=== PATIENT | male | born 1965 ===

== ENCOUNTER 2021-02-21 07:15 | Outpatient (REF) | payer MEDICARE, SELFPAY ==
[2021-02-21 08:16] LABS: MANUAL DIFF FLAG NO
[2021-02-21 08:19] LABS: Basophils Absolute Auto 0.1 X10*3/uL (0.0-0.2); Basophils Percent Auto 0.6 % (0-2); Eosinophils Absolute Auto 0.3 X10*3/uL (0.0-0.4); Eosinophils Percent Auto 2.9 % (0-4); Hematocrit 42.6 % (42-52); Hemoglobin 13.8 g/dl (14.0-18.0); Imm Gran Abs Auto 0.02 X10*3/uL (0.00-0.03); Imm Gran Pct Auto 0.2 % (0.0-0.4); Lymphocytes Absolute Auto 2.2 X10*3/uL (1.2-4.9); Mean Corpuscular HGB Conc 32.4 g/dl (31.0-36.0); Mean Corpuscular Hemoglobin 29.6 pg (27.0-33.0); Mean Corpuscular Volume 91.2 fL (80-98); Monocytes Absolute Auto 1.2 X10*3/uL (0.1-1.2); Neutrophils Absolute Auto 5.5 X10*3/uL (2.0-8.3); Neutrophils Percent Auto 59.3 % (45-73); Platelet Count 265 X10*3/uL (160-400); Red Blood Count 4.67 X10*6/uL (4.60-5.80); Red Cell Distribution Width 13.4 % (11.0-16.0); White Blood Count 9.3 X10*3/uL (4.8-10.8)
[2021-02-21 08:42] LABS: Glucose Urine UA NEG (NEG); Leukocyte Esterase Urine NEG (NEG); Nitrite Urine NEG (NEG); Specific Gravity - Urine 1.025 (1.005-1.025); Urine Blood TRACE (NEG); Urine Ketones NEG (NEG); Urine Protein NEG (NEG-TRACE)
[2021-02-21 08:48] LABS: Appearance Urine CLEAR; Color Urine YELLOW
[2021-02-21 08:53] LABS: RBC Urine 0-2 /HPF (0); WBC Urine 0 /HPF (0-4)
[2021-02-21 08:54] LABS: Alanine Aminotransferase 18 U/L (0-40); Albumin Level 4.4 g/dL (3.5-5.0); Alkaline Phosphatase 91 U/L (39-117); Anion Gap 15 (12-20); Aspartate Amino Transferase 17 U/L (5-37); Bilirubin Total 0.6 mg/dL (0.0-1.0); Blood Urea Nitrogen 20 mg/dL (9-16); Calcium 9.1 mg/dL (8.4-10.2); Carbon Dioxide 21 mmol/L (22-29); Chloride 107 mmol/L (96-108); Cholesterol 123 mg/dL; Estimated Glomerular Filt Rate > 60; Glucose Fasting 146 mg/dL (60-99); HDL Cholesterol 32 mg/dL; LDL Cholesterol Calculated 72 mg/dl; Potassium 4.3 mmol/L (3.3-5.1); Sodium 139 mmol/L (135-145); Total Protein 7.3 g/dL (6.5-8.0); Triglycerides 97 mg/dL
[2021-02-21 08:57] LABS: TSH reflex Free T4 1.37 uIU/mL (0.32-4.0)
[2021-02-21 09:10] LABS: Microalbum/Creatinine Ratio Ur 9.5 ug/mg cr
== END 2021-02-21 07:16 | disposition home or self-care (01) ==
LOC: HO.LAB 07:15
PROVIDERS: PCP Internal Medicine; Visit Provider Internal Medicine
DX: I10 Essential (primary) hypertension (principal); K21.9 Gastro-esophageal reflux disease without esophagitis; K59.00 Constipation, unspecified; E78.5 Hyperlipidemia, unspecified; E11.9 Type 2 diabetes mellitus without complications; R79.89 Other specified abnormal findings of blood chemistry; E66.9 Obesity, unspecified
CPT/HCPCS: 36415; 80053; 80061; 81001; 82043; 84443; 85025

== ENCOUNTER 2021-05-23 08:09 | Outpatient (REF) | payer MEDICARE, SELFPAY ==
[2021-05-23 09:06] LABS: MANUAL DIFF FLAG NO
[2021-05-23 09:09] LABS: Basophils Percent Auto 0.4 % (0-2); Eosinophils Absolute Auto 0.2 X10*3/uL (0.0-0.4); Eosinophils Percent Auto 1.5 % (0-4); Hematocrit 43.9 % (42-52); Hemoglobin 14.6 g/dl (14.0-18.0); Imm Gran Abs Auto 0.04 X10*3/uL (0.00-0.03); Imm Gran Pct Auto 0.4 % (0.0-0.4); Lymphocytes Absolute Auto 2.5 X10*3/uL (1.2-4.9); Mean Corpuscular HGB Conc 33.3 g/dl (31.0-36.0); Mean Corpuscular Volume 90.3 fL (80-98); Mean Platelet Volume 11.6 fL (9.4-12.4); Monocytes Absolute Auto 0.8 X10*3/uL (0.1-1.2); Monocytes Percent Auto 7.4 % (2-11); Neutrophils Absolute Auto 7.4 X10*3/uL (2.0-8.3); Neutrophils Percent Auto 67.3 % (45-73); Platelet Count 265 X10*3/uL (160-400); Red Blood Count 4.86 X10*6/uL (4.60-5.80); Red Cell Distribution Width 13.1 % (11.0-16.0)
[2021-05-23 09:28] LABS: Glucose Urine UA NEG (NEG); Leukocyte Esterase Urine NEG (NEG); Nitrite Urine NEG (NEG); PH 5.5 (5.0-8.0); Specific Gravity - Urine >= 1.030 (1.005-1.025); UACC Culture Trigger NO; Urine Blood TRACE (NEG); Urine Ketones NEG (NEG); Urine Protein NEG (NEG-TRACE)
[2021-05-23 09:31] LABS: Alanine Aminotransferase 33 U/L (0-40); Albumin Level 4.5 g/dL (3.5-5.0); Alkaline Phosphatase 87 U/L (39-117); Anion Gap 15 (12-20); Aspartate Amino Transferase 25 U/L (5-37); Bilirubin Total 0.9 mg/dL (0.0-1.0); Blood Urea Nitrogen 14 mg/dL (9-16); Calcium 9.6 mg/dL (8.4-10.2); Carbon Dioxide 23 mmol/L (22-29); Chloride 106 mmol/L (96-108); Cholesterol 153 mg/dL; Estimated Glomerular Filt Rate > 60; Glucose Fasting 143 mg/dL (60-99); HDL Cholesterol 30 mg/dL; LDL Cholesterol Calculated 102 mg/dl; Potassium 4.3 mmol/L (3.3-5.1); Sodium 140 mmol/L (135-145); Total Protein 7.3 g/dL (6.5-8.0); Triglycerides 106 mg/dL
[2021-05-23 09:44] LABS: Appearance Urine CLEAR; Color Urine YELLOW
[2021-05-23 09:45] LABS: RBC Urine 0-2 /HPF (0); WBC Urine 0 /HPF (0-4)
[2021-05-23 09:46] LABS: Amorphous Sediment Urine TRACE /LPF; Mucus Urine 1+ /LPF
[2021-05-23 09:50] LABS: Creatinine Urine 192.95 mg/dL; Estimated Average Glucose 157 mg/dL; Hemoglobin A1c % 7.1 %; Microalbum/Creatinine Ratio Ur 13.4 ug/mg cr
[2021-05-23 09:54] LABS: TSH reflex Free T4 1.64 uIU/mL (0.32-4.0)
== END 2021-05-23 08:10 | disposition home or self-care (01) ==
LOC: HO.LAB 08:09
PROVIDERS: PCP Internal Medicine; Visit Provider Internal Medicine
DX: E11.9 Type 2 diabetes mellitus without complications (principal); I10 Essential (primary) hypertension; E78.5 Hyperlipidemia, unspecified; K21.9 Gastro-esophageal reflux disease without esophagitis; R79.89 Other specified abnormal findings of blood chemistry; E78.00 Pure hypercholesterolemia, unspecified; E66.9 Obesity, unspecified
CPT/HCPCS: 36415; 80053; 80061; 81001; 82043; 83036; 84443; 85025

== ENCOUNTER 2021-08-25 06:47 | Outpatient (REF) | payer MEDICARE, SELFPAY ==
[2021-08-25 06:53] LABS: MANUAL DIFF FLAG NO
[2021-08-25 07:29] LABS: Basophils Percent Auto 0.5 % (0-2); Eosinophils Absolute Auto 0.2 X10*3/uL (0.0-0.4); Eosinophils Percent Auto 1.9 % (0-4); Hematocrit 43.6 % (42.0-52.0); Hemoglobin 14.8 g/dl (14.0-18.0); Imm Gran Abs Auto 0.03 X10*3/uL (0.00-0.03); Imm Gran Pct Auto 0.4 % (0.0-0.4); Lymphocytes Absolute Auto 2.1 X10*3/uL (1.2-4.9); Lymphocytes Percent Auto 26.5 % (20-40); Mean Corpuscular HGB Conc 33.9 g/dl (31.0-36.0); Mean Corpuscular Hemoglobin 30.3 pg (27.0-33.0); Mean Corpuscular Volume 89.2 fL (80.0-98.0); Mean Platelet Volume 10.8 fL (9.4-12.4); Monocytes Absolute Auto 0.7 X10*3/uL (0.1-1.2); Monocytes Percent Auto 8.2 % (2-11); Neutrophils Absolute Auto 5.03 x10*3/uL (2.0-8.3); Neutrophils Percent Auto 62.5 % (45-73); Platelet Count 250 X10*3/uL (160-400); Red Blood Count 4.89 X10*6/uL (4.60-5.80); Red Cell Distribution Width 12.6 % (11.0-16.0)
[2021-08-25 07:51] LABS: Estimated Average Glucose 148 mg/dL; Hemoglobin A1c % 6.8 %
[2021-08-25 07:53] LABS: Appearance Urine CLEAR; Color Urine YELLOW; Glucose Urine UA NEG (NEG); Leukocyte Esterase Urine NEG (NEG); Nitrite Urine NEG (NEG); UACC Culture Trigger NO; Urine Blood TRACE (NEG); Urine Ketones NEG (NEG); Urine Protein NEG (NEG-TRACE)
[2021-08-25 08:01] LABS: Alanine Aminotransferase 49 U/L (0-40); Albumin Level 4.5 g/dL (3.5-5.0); Alkaline Phosphatase 104 U/L (39-117); Anion Gap 12 (12-20); Aspartate Amino Transferase 33 U/L (5-37); Bilirubin Total 0.5 mg/dL (0.0-1.0); Blood Urea Nitrogen 12 mg/dL (9-16); Carbon Dioxide 24 mmol/L (22-29); Chloride 105 mmol/L (96-108); Cholesterol 193 mg/dL; Estimated Glomerular Filt Rate > 60; Glucose Fasting 152 mg/dL (60-99); HDL Cholesterol 30 mg/dL; LDL Cholesterol Calculated 105 mg/dl; Potassium 4.1 mmol/L (3.3-5.1); Sodium 137 mmol/L (135-145); Total Protein 7.3 g/dL (6.5-8.0); Triglycerides 293 mg/dL
[2021-08-25 08:02] LABS: Creatinine Urine 167.93 mg/dL
[2021-08-25 08:12] LABS: TSH reflex Free T4 2.59 uIU/mL (0.32-4.0); Vitamin D 25-OH Total 23.8 ng/mL (>30)
[2021-08-25 08:16] LABS: Mucus Urine TRACE /LPF; RBC Urine 0-2 /HPF (0); WBC Urine 0 /HPF (0-4)
== END 2021-08-25 06:48 | disposition home or self-care (01) ==
LOC: HO.LAB 06:47
PROVIDERS: PCP Internal Medicine; Visit Provider Internal Medicine
DX: I10 Essential (primary) hypertension (principal); E78.00 Pure hypercholesterolemia, unspecified; E11.9 Type 2 diabetes mellitus without complications; E55.9 Vitamin D deficiency, unspecified
CPT/HCPCS: 36415; 80053; 80061; 81001; 82043; 82306; 83036; 84443; 85025

== ENCOUNTER 2021-10-21 23:43 | Emergency (ER) | payer MEDICARE, SELFPAY ==
[2021-10-22 00:01] VITALS: BP 223/105; PULSE 75; RESP 20; TEMP 36.9; O2SAT 95; BMI 37.6
[2021-10-22 00:18] VITALS: BP 214/105; PULSE 84; RESP 20; TEMP 36.6; O2SAT 98
[2021-10-22] MEDS: oxyCODONE HCl Immed Release 5 MG TABLET 10 MG PO (01:17)
[2021-10-22] MEDS: Ketorolac Tromethamine 60 MG/2 ML VIAL IM (01:17)
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
[2021-10-22] MEDS: Bacitracin Oint 0.9 GM PACKET 1 APPL TOPICAL (01:42)
[2021-10-22] MEDS: Diphth,Pertus(ACell),Tet Adult 0.5 ML SYRINGE IM (01:44)
== END 2021-10-22 02:11 | disposition home or self-care (01) ==
PROVIDERS: Emergency Provider Emergency Medicine Emergency Medical Services
DX: S60.511A Abrasion of right hand, initial encounter (principal); T23.151A Burn of first degree of right palm, initial encounter; T31.0 Burns involving less than 10% of body surface; X12.XXXA Contact with other hot fluids, initial encounter; Y93.9 Activity, unspecified; Y92.9 Unspecified place or not applicable; Y99.9 Unspecified external cause status; Z79.899 Other long term (current) drug therapy; Z87.891 Personal history of nicotine dependence
CPT/HCPCS: 90471; 90715; 96372; 99284; J1885

== ENCOUNTER 2022-01-19 16:54 | Outpatient (REF) | payer OTHER, SELFPAY ==
[2022-01-19 18:11] LABS: Alanine Aminotransferase 53 U/L (0-40); Albumin Level 4.5 g/dL (3.5-5.0); Alkaline Phosphatase 102 U/L (39-117); Anion Gap 14 (12-20); Aspartate Amino Transferase 31 U/L (5-37); Bilirubin Total 0.5 mg/dL (0.0-1.0); Blood Urea Nitrogen 17 mg/dL (9-16); Calcium 9.9 mg/dL (8.4-10.2); Carbon Dioxide 23 mmol/L (22-29); Chloride 107 mmol/L (96-108); Estimated Glomerular Filt Rate > 60; Glucose Random 167 mg/dL (60-115); Potassium 4.7 mmol/L (3.3-5.1); Sodium 139 mmol/L (135-145); Total Protein 7.8 g/dL (6.5-8.0)
[2022-01-20 06:30] LABS: Estimated Average Glucose 163 mg/dL; Hemoglobin A1C 223.5423 umol/L; Hemoglobin A1c % 7.3 %
== END 2022-01-19 16:55 | disposition home or self-care (01) ==
LOC: HO.LAB 16:54
PROVIDERS: PCP Internal Medicine; Visit Provider Internal Medicine
DX: E11.9 Type 2 diabetes mellitus without complications (principal)
CPT/HCPCS: 36415; 80053; 83036

== ENCOUNTER 2022-08-17 08:22 | Outpatient (REF) | payer OTHER, SELFPAY ==
[2022-08-17 08:33] LABS: MANUAL DIFF FLAG NO
[2022-08-17 08:41] LABS: Basophils Percent Auto 0.4 % (0-2); Eosinophils Absolute Auto 0.2 X10*3/uL (0.0-0.4); Eosinophils Percent Auto 1.6 % (0-4); Hemoglobin 14.3 g/dl (14.0-18.0); Imm Gran Abs Auto 0.05 X10*3/uL (0.00-0.03); Imm Gran Pct Auto 0.5 % (0.0-0.4); Lymphocytes Absolute Auto 2.6 X10*3/uL (1.2-4.9); Lymphocytes Percent Auto 28.4 % (20-40); Mean Corpuscular HGB Conc 33.3 g/dl (31.0-36.0); Mean Corpuscular Hemoglobin 30.1 pg (27.0-33.0); Mean Corpuscular Volume 90.5 fL (80.0-98.0); Mean Platelet Volume 10.6 fL (9.4-12.4); Monocytes Absolute Auto 0.9 X10*3/uL (0.1-1.2); Monocytes Percent Auto 9.1 % (2-11); Neutrophils Absolute Auto 5.6 x10*3/uL (2.0-8.3); Platelet Count 248 X10*3/uL (160-400); Red Blood Count 4.75 X10*6/uL (4.60-5.80); Red Cell Distribution Width 12.8 % (11.0-16.0); White Blood Count 9.3 X10*3/uL (4.8-10.8)
[2022-08-17 08:51] LABS: Estimated Average Glucose 151 mg/dL; Hemoglobin A1c % 6.9 %
[2022-08-17 09:05] LABS: Alanine Aminotransferase 58 U/L (0-40); Albumin Level 4.4 g/dL (3.5-5.0); Alkaline Phosphatase 103 U/L (39-117); Anion Gap 17 (12-20); Aspartate Amino Transferase 33 U/L (5-37); Bilirubin Total 0.6 mg/dL (0.0-1.0); Blood Urea Nitrogen 13 mg/dL (9-16); Calcium 9.4 mg/dL (8.4-10.2); Carbon Dioxide 24 mmol/L (22-29); Chloride 104 mmol/L (96-108); Cholesterol 187 mg/dL; Estimated Glomerular Filt Rate > 60; Glucose Fasting 153 mg/dL (60-99); HDL Cholesterol 39 mg/dL; LDL Cholesterol Calculated 125 mg/dl; Potassium 3.9 mmol/L (3.3-5.1); Sodium 141 mmol/L (135-145); Total Protein 7.6 g/dL (6.5-8.0); Triglycerides 119 mg/dL
[2022-08-17 09:27] LABS: TSH reflex Free T4 1.86 uIU/mL (0.32-4.0); Vitamin D 25-OH Total 24.7 ng/mL (>30)
[2022-08-17 09:29] LABS: Appearance Urine Clear; Color Urine Yellow; Glucose Urine UA Negative (Negative); PH 6.5 (5.0-9.0); Specific Gravity - Urine 1.025 (1.005-1.025); Urine Blood Negative (Negative); Urine Protein Trace mg/dL (Neg-Trace)
[2022-08-17 09:30] LABS: Leukocyte Esterase Urine Negative (Negative); Nitrite Urine Negative (Negative); Urine Ketones Negative (Negative)
[2022-08-17 09:57] LABS: Creatinine Urine 190.34 mg/dL; Microalbum/Creatinine Ratio Ur 29.9 ug/mg cr
== END 2022-08-17 08:23 | disposition home or self-care (01) ==
LOC: HO.LAB 08:22
PROVIDERS: PCP Internal Medicine; Visit Provider Internal Medicine
DX: E78.00 Pure hypercholesterolemia, unspecified (principal); E11.9 Type 2 diabetes mellitus without complications; E55.9 Vitamin D deficiency, unspecified; I10 Essential (primary) hypertension
CPT/HCPCS: 36415; 80053; 80061; 81003; 82043; 82306; 83036; 84443; 85025

== ENCOUNTER 2022-11-19 07:55 | Outpatient (REF) | payer OTHER, SELFPAY ==
[2022-11-19 08:09] LABS: MANUAL DIFF FLAG NO
[2022-11-19 09:00] LABS: Appearance Urine Clear; Color Urine Yellow; Glucose Urine UA Negative (Negative); Leukocyte Esterase Urine Negative (Negative); Nitrite Urine Negative (Negative); Urine Blood Negative (Negative); Urine Ketones Negative (Negative); Urine Protein Negative (Neg-Trace)
[2022-11-19 09:02] LABS: Basophils Absolute Auto 0.1 X10*3/uL (0.0-0.2); Basophils Percent Auto 0.6 % (0-2); Eosinophils Absolute Auto 0.2 X10*3/uL (0.0-0.4); Eosinophils Percent Auto 1.7 % (0-4); Hematocrit 43.2 % (42.0-52.0); Hemoglobin 14.6 g/dl (14.0-18.0); Imm Gran Abs Auto 0.05 X10*3/uL (0.00-0.03); Imm Gran Pct Auto 0.5 % (0.0-0.4); Lymphocytes Absolute Auto 2.1 X10*3/uL (1.2-4.9); Lymphocytes Percent Auto 20.9 % (20-40); Mean Corpuscular HGB Conc 33.8 g/dl (31.0-36.0); Mean Corpuscular Hemoglobin 29.8 pg (27.0-33.0); Mean Corpuscular Volume 88.2 fL (80.0-98.0); Mean Platelet Volume 11.7 fL (9.4-12.4); Monocytes Absolute Auto 0.8 X10*3/uL (0.1-1.2); Monocytes Percent Auto 7.8 % (2-11); Neutrophils Percent Auto 68.5 % (45-73); Platelet Count 231 X10*3/uL (160-400); Red Cell Distribution Width 12.5 % (11.0-16.0); White Blood Count 10.2 X10*3/uL (4.8-10.8)
[2022-11-19 09:13] LABS: Estimated Average Glucose 157 mg/dL; Hemoglobin A1c % 7.1 %
[2022-11-19 09:50] LABS: Creatinine Urine 133.51 mg/dL; Microalbum/Creatinine Ratio Ur 13.4 ug/mg cr
[2022-11-19 09:56] LABS: Alanine Aminotransferase 30 U/L (0-40); Albumin Level 4.4 g/dL (3.5-5.0); Alkaline Phosphatase 101 U/L (39-117); Anion Gap 16 (12-20); Aspartate Amino Transferase 23 U/L (5-37); Bilirubin Total 1.7 mg/dL (0.0-1.0); Blood Urea Nitrogen 15 mg/dL (9-16); Calcium 9.2 mg/dL (8.4-10.2); Carbon Dioxide 22 mmol/L (22-29); Chloride 104 mmol/L (96-108); Cholesterol 198 mg/dL; Estimated Glomerular Filt Rate > 60; Glucose Fasting 128 mg/dL (60-99); HDL Cholesterol 30 mg/dL; LDL Cholesterol Calculated 141 mg/dl; Sodium 138 mmol/L (135-145); Total Protein 7.5 g/dL (6.5-8.0); Triglycerides 135 mg/dL
== END 2022-11-19 07:56 | disposition home or self-care (01) ==
LOC: HO.LAB 07:55
PROVIDERS: PCP Internal Medicine; Visit Provider Internal Medicine
DX: E11.9 Type 2 diabetes mellitus without complications (principal); E78.00 Pure hypercholesterolemia, unspecified; R30.0 Dysuria; I10 Essential (primary) hypertension
CPT/HCPCS: 36415; 80053; 80061; 81003; 82043; 83036; 85025

== ENCOUNTER 2022-11-25 08:49 | Outpatient (REF) | payer OTHER, SELFPAY ==
--- NOTE | ~2022-11-25 | XR_ITS ---
EXAMINATION: XR LUMBOSACRAL SPINE CLINICAL INFORMATION: Low back pain COMPARISON: None TECHNIQUE: Three views of the lumbosacral spine. FINDINGS: Question mild anterolisthesis of L5 on S1, evaluation limited by overlapping densities. The sagittal alignment is otherwise maintained. Vertebral body heights are maintained. No evidence of acute fracture. Disc spaces are maintained. Multilevel mild endplate spurring. Multilevel facet degeneration. There appears be mild bilateral SI joint arthritis. Surgical clips in right upper abdomen. No abnormal soft tissue calcification seen. XR/XR lumbar spine 2-3V IMPRESSION: Mild lumbar spondylosis. No evidence of acute fracture. Mild bilateral SI joint arthritis.
--- NOTE | ~2022-11-25 | XR_ITS ---
EXAMINATION: XR KNEE, RIGHT CLINICAL INFORMATION: Knee pain. COMPARISON: None TECHNIQUE: Four views of the right knee. FINDINGS: No visible acute fracture or dislocation. Small suprapatellar joint fluid.. Alignment is anatomic. Joint spaces are well maintained. No abnormal soft tissue calcification. Superior patellar insertion enthesopathy. XR/XR knee RT 4V IMPRESSION: No evidence of acute osseous abnormality.
== END 2022-11-25 08:50 | disposition home or self-care (01) ==
LOC: HO.XRAY 08:49
PROVIDERS: PCP Internal Medicine; Visit Provider Internal Medicine
DX: M54.50 Low back pain, unspecified (principal); M25.561 Pain in right knee
CPT/HCPCS: 72100; 73564

== ENCOUNTER 2023-02-09 06:47 | Outpatient (REF) | payer OTHER, SELFPAY ==
[2023-02-09 06:59] LABS: MANUAL DIFF FLAG NO
[2023-02-09 07:11] LABS: Basophils Absolute Auto 0.1 X10*3/uL (0.0-0.2); Basophils Percent Auto 0.6 % (0-2); Eosinophils Absolute Auto 0.2 X10*3/uL (0.0-0.4); Eosinophils Percent Auto 1.7 % (0-4); Hematocrit 45.9 % (42.0-52.0); Hemoglobin 15.2 g/dl (14.0-18.0); Imm Gran Abs Auto 0.05 X10*3/uL (0.00-0.03); Imm Gran Pct Auto 0.5 % (0.0-0.4); Lymphocytes Absolute Auto 2.3 X10*3/uL (1.2-4.9); Lymphocytes Percent Auto 22.9 % (20-40); Mean Corpuscular HGB Conc 33.1 g/dl (31.0-36.0); Mean Corpuscular Hemoglobin 29.6 pg (27.0-33.0); Mean Corpuscular Volume 89.5 fL (80.0-98.0); Monocytes Absolute Auto 0.6 X10*3/uL (0.1-1.2); Monocytes Percent Auto 6.3 % (2-11); Neutrophils Absolute Auto 6.7 x10*3/uL (2.0-8.3); Platelet Count 245 X10*3/uL (160-400); Red Blood Count 5.13 X10*6/uL (4.60-5.80); Red Cell Distribution Width 12.7 % (11.0-16.0); White Blood Count 9.9 X10*3/uL (4.8-10.8)
[2023-02-09 07:25] LABS: Estimated Average Glucose 154 mg/dL
[2023-02-09 07:57] LABS: Alanine Aminotransferase 29 U/L (0-40); Albumin Level 4.6 g/dL (3.5-5.0); Alkaline Phosphatase 95 U/L (39-117); Anion Gap 12 (12-20); Aspartate Amino Transferase 21 U/L (5-37); Bilirubin Total 1.5 mg/dL (0.0-1.0); Blood Urea Nitrogen 14 mg/dL (9-16); Calcium 9.6 mg/dL (8.4-10.2); Carbon Dioxide 24 mmol/L (22-29); Chloride 105 mmol/L (96-108); Cholesterol 208 mg/dL; Estimated Glomerular Filt Rate > 60; Glucose Fasting 161 mg/dL (60-99); HDL Cholesterol 34 mg/dL; LDL Cholesterol Calculated 148 mg/dl; Potassium 4.3 mmol/L (3.3-5.1); Sodium 137 mmol/L (135-145); Total Protein 7.4 g/dL (6.5-8.0); Triglycerides 131 mg/dL
[2023-02-09 08:13] LABS: Vitamin D 25-OH Total 31.9 ng/mL (>30)
[2023-02-09 08:55] LABS: Appearance Urine Clear; Color Urine Yellow; Glucose Urine UA Negative (Negative); Leukocyte Esterase Urine Trace (Negative); Nitrite Urine Negative (Negative); PH 5.5 (5.0-9.0); UMIC TRIGGER UACC YES; Urine Blood Negative (Negative); Urine Ketones Negative (Negative); Urine Protein Negative (Neg-Trace)
[2023-02-09 08:58] LABS: Bacteria Urine None Seen (None Seen); Hyaline Casts Urine 0-2 /LPF (0-2); RBC Urine 0-2 /HPF (0-2); Squamous Epithelial Cell Urine 0-2 /HPF (0-2); WBC Urine 0-5 /HPF (0-5)
[2023-02-09 09:21] LABS: Creatinine Urine 182.92 mg/dL; Microalbum/Creatinine Ratio Ur 20.2 ug/mg cr
== END 2023-02-09 06:48 | disposition home or self-care (01) ==
LOC: HO.LAB 06:47
PROVIDERS: PCP Internal Medicine; Visit Provider Internal Medicine
DX: E11.9 Type 2 diabetes mellitus without complications (principal); E78.00 Pure hypercholesterolemia, unspecified; E55.9 Vitamin D deficiency, unspecified; I10 Essential (primary) hypertension
CPT/HCPCS: 36415; 80053; 80061; 81001; 82043; 82306; 83036; 84443; 85025

== ENCOUNTER 2023-05-24 08:16 | Outpatient (REF) | payer OTHER, SELFPAY ==
[2023-05-24 08:55] LABS: MANUAL DIFF FLAG NO
[2023-05-24 09:01] LABS: Basophils Absolute Auto 0.1 X10*3/uL (0.0-0.2); Basophils Percent Auto 0.6 % (0-2); Eosinophils Absolute Auto 0.2 X10*3/uL (0.0-0.4); Eosinophils Percent Auto 1.7 % (0-4); Hemoglobin 14.9 g/dl (14.0-18.0); Imm Gran Abs Auto 0.03 X10*3/uL (0.00-0.03); Imm Gran Pct Auto 0.3 % (0.0-0.4); Lymphocytes Absolute Auto 2.1 X10*3/uL (1.2-4.9); Lymphocytes Percent Auto 22.2 % (20-40); Mean Corpuscular HGB Conc 33.1 g/dl (31.0-36.0); Mean Corpuscular Hemoglobin 30.3 pg (27.0-33.0); Mean Corpuscular Volume 91.5 fL (80.0-98.0); Mean Platelet Volume 10.8 fL (9.4-12.4); Monocytes Absolute Auto 0.9 X10*3/uL (0.1-1.2); Monocytes Percent Auto 8.9 % (2-11); Neutrophils Absolute Auto 6.3 x10*3/uL (2.0-8.3); Neutrophils Percent Auto 66.3 % (45-73); Platelet Count 239 X10*3/uL (160-400); Red Blood Count 4.92 X10*6/uL (4.60-5.80); Red Cell Distribution Width 13.1 % (11.0-16.0); White Blood Count 9.5 X10*3/uL (4.8-10.8)
[2023-05-24 09:16] LABS: Estimated Average Glucose 143 mg/dL; Hemoglobin A1c % 6.6 %
[2023-05-24 09:49] LABS: Alanine Aminotransferase 56 U/L (0-40); Albumin Level 4.3 g/dL (3.5-5.0); Alkaline Phosphatase 104 U/L (39-117); Anion Gap 17 (12-20); Aspartate Amino Transferase 38 U/L (5-37); Bilirubin Total 1.2 mg/dL (0.0-1.0); Blood Urea Nitrogen 17 mg/dL (9-16); Calcium 9.8 mg/dL (8.4-10.2); Carbon Dioxide 23 mmol/L (22-29); Chloride 103 mmol/L (96-108); Cholesterol 238 mg/dL; Estimated Glomerular Filt Rate > 60; Glucose Fasting 154 mg/dL (60-99); HDL Cholesterol 35 mg/dL; LDL Cholesterol Calculated 151 mg/dl; Sodium 139 mmol/L (135-145); Total Protein 7.8 g/dL (6.5-8.0); Triglycerides 260 mg/dL
[2023-05-24 11:10] LABS: Appearance Urine Cloudy; Color Urine Yellow; Glucose Urine UA Negative (Negative); Leukocyte Esterase Urine Negative (Negative); Nitrite Urine Negative (Negative); Specific Gravity - Urine 1.025 (1.005-1.025); Urine Blood Negative (Negative); Urine Ketones Negative (Negative); Urine Protein Negative (Neg-Trace)
[2023-05-24 11:55] LABS: Creatinine Urine 208.33 mg/dL; Microalbum/Creatinine Ratio Ur 18.2 ug/mg cr
== END 2023-05-24 08:17 | disposition home or self-care (01) ==
LOC: HO.LAB 08:16
PROVIDERS: PCP Internal Medicine; Visit Provider Internal Medicine
DX: E11.9 Type 2 diabetes mellitus without complications (principal); E55.9 Vitamin D deficiency, unspecified; E78.00 Pure hypercholesterolemia, unspecified; I10 Essential (primary) hypertension; R30.0 Dysuria
CPT/HCPCS: 36415; 80053; 80061; 81003; 82043; 82306; 83036; 85025

== ENCOUNTER 2023-05-24 15:00 | Outpatient (AMB) | payer OTHER, SELFPAY ==
--- NOTE | 2023-05-24 15:02 | A.OFFPC_ITS ---
Vital Signs 05/24/23 15:03 Height 5 ft 11 in Weight 268 lb BMI 37.4 BP 138/90 H Blood Pressure Location Rt brachial Position Sitting Pulse 70 Pulse Source Pulse Oximeter Pulse Oximetry (%) 96 Oxygen Delivery Method Room Air Intake Visit Reasons: DM, hyperlipidemia, HTN Picker And Packer Required: No Accompanied by: Self / Same As Patient Allergies duloxetine [Cymbalta] Allergy (Unknown, Verified 05/24/23 17:44) nausea , vomiting gabapentin Allergy (Unknown, Verified 05/24/23 17:44) dizziness, nausea shellfish derived Allergy (Unknown, Verified 05/24/23 17:44) Unknown Medication List - Last Reconciled 05/24/23 by Yash Zambrano MD atenolol 25 mg PO DAILY blood sugar diagnostic (Glisten Ultra Test strips) DIRECTED TO TEST BLOOD SUGAR DAILY clonazepam 1 mg PO BEDTIME PRN 30 days lancets (Glisten Delica Plus Lancet) 30 gauge miscellaneous DAILY metformin ER 500 mg PO DAILY nortriptyline 25 mg PO BEDTIME 30 days omeprazole 20 mg PO BID 90 days rosuvastatin 5 mg PO DAILY 90 days Tobacco use date assessed: 05/24/23 Dental Screening Dental Screen Date: 05/24/23 Did you have a dental visit in the last 12 months?: No Did you have a dental problem in the last 6 months where you did not have access to dental care?: No Was dental information given to patient?: Patient has dentist HPI DM, hyperlipidemia, HTN HPI Details Patient comes in today for his follow up visit States that he feels okay He denies any headaches or dizziness Denies any chest pains, no SOB No nausea/vomiting, no abdominal pain No change in bowel habits noted Had his follow up labs done earlier this morning - to discuss his results Also needs a physical exam form filled out for the caregiver program; states that 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 Mother Depression Myocardial infarction Brother In good health Brother In good health Daughter In good health Daughter In good health Daughter In good health Social History Housing: House Alcohol intake: current Alcohol intake frequency: holidays/special occasions only Patient Tobacco Use Status: Former Tobacco user Quit Date: 20 years ago e-Cigarette/Vaping Use: Never Used Second Hand Smoke Exposure: Yes service: No Current occupational status: disabled Cognitive needs: No Hearing needs: No Vision needs: No Questionnaire PHQ-9 Over the last 2 weeks, how often have you been bothered by any of the following problems? 1. Little interest or pleasure in doing things: not at all 2. Feeling down, depressed, or hopeless: not at all 3. Trouble falling or staying asleep, or sleeping too much: not at all 4. Feeling tired or having little energy: not at all 5. Poor appetite or overeating: not at all 6. Feeling bad about yourself - or that you are a failure or have let yourself or your family down: not at all 7. Trouble concentrating on things, such as reading the newspaper or watching television: not at all 8. Moving or speaking so slowly that other people could have noticed. Or the opposite - being so fidgety or restless that you have been moving around a lot more than usual: not at all 9. Thoughts that you would be better off or of hurting yourself in some way: not at all Total score: 0 Depression Screening Interpretation: Negative 30169 - PHQ-9 Billing: Yes Source: Developed by Drs. Reji Ureña, Antionette Dickey, Ronald Ignacio and colleagues, with an educational shelby from [employer]. Thrive Questionnaire Date Thrive assessed: 05/24/23 I am a: Patient What is your living situation today?: I have a steady place to live Within the past 12 months, did the food you bought not last and you didn't have the money to get more?: Never true Within the past 12 months, did you worry whether your food would run out before you got money to buy more?: Never true Do you have trouble paying for medicines?: No Do you have trouble getting transportation to medical appointments?: No Do you have trouble paying your heating and electricity bill?: No Do you have trouble taking care of your child, family member or friend?: No Do you have trouble with day-to-day activities such as bathing, preparing meals, shopping, managing finances, etc.?: No Are you currently unemployed and looking for a job?: No Are you interested in more education?: No Please select the resources that you would like help with: None Currently or been in a relationship where the following occur: no concerns reported AUDIT C Alcohol Use Questionnaire (AUDIT-C) 1. How often do you have a drink containing alcohol?: Monthly or less 2. How many drinks containing alcohol do you have on a typical day when you are drinking?: 1 or 2 3. How often do you have six or more drinks on one occasion?: Never Total Score: 1 Score Reviewed/Action Taken: Yes SIRENA-7 AMB Questionnaire SIRENA-7 Date SIRENA - 7 assessed: 05/24/23 Feeling nervous, anxious, or on edge: 0 = Not at all Not being able to stop or control worryin = Not at all Worrying too much about different things: 0 = Not at all Trouble relaxin = Not at all Being so restless that it is hard to sit still: 0 = Not at all Becoming easily annoyed or irritable: 0 = Not at all Feeling afraid as if something awful might happen: 0 = Not at all Total SIRENA-7 score (0-4 normal; 5-9 mild; 10-14 moderate; 15-21 severe): 0 Source: Developed by Drs. Reji Ureña, Antionette Dickey, Ronald Ignacio and colleagues, with an educational shelby from [employer]. Review of Systems Const Denies fatigue, Denies fever(s) and Denies headache(s) ENT Denies dysphagia, Denies dizziness, Denies headache(s) and Denies sore throat Card Denies chest pain, Denies palpitations and Denies dyspnea Resp Denies cough, Denies dyspnea and Denies wheezing GI Denies abdominal pain, Denies constipation, Denies dysphagia, Denies heartburn, Denies diarrhea, Denies nausea and Denies vomiting Denies dysuria, Denies nocturia and Denies urinary frequency Musc Reports back pain (on and off) Neuro Denies dizziness and Denies headache(s) Endo Denies fatigue and Denies palpitations Aller/Immun Denies wheezing Physical exam (Primary Care) Vital Signs: Last Vital Signs Pulse 70 05/24/23 15:03 BP 138/90 H 05/24/23 15:03 Pulse Ox 96 05/24/23 15:03 Oxygen Delivery Method Room Air 05/24/23 15:03 BMI result Body Mass Index 37.4 Tobacco/Smoking Status: Tobacco use Status Tobacco use date assessed 05/24/23 05/24/23 15:12 Patient Tobacco Use Status Former Tobacco user 05/24/23 15:12 e-Cigarette/Vaping Use Never Used 05/24/23 15:12 PHQ-9: PHQ-9 Score PHQ-9: Total score 0 05/24/23 15:49 Depression Screening Interpretation: Negative Thrive Assessment: Date of Thrive Assessment Date Thrive assessed 05/24/23 05/24/23 15:12 Currently or been in a relationship where the following occur: no concerns reported Const General: no acute distress and alert HENMT Ears: TM's normal bilaterally and EAC's normal Throat: Yes posterior oropharynx normal and Yes tonsils normal (no TP congestion) Neck Neck: Yes no lymphadenopathy and Yes supple Resp Auscultation: clear to auscultation bilaterally, no rales and no wheezes Cardio Rate: regular rate Rhythm: regular rhythm Heart sounds: no murmurs GI Palpation (GI): Soft to palpation and nontender Auscultation: normal bowel sounds Back/Spine/Pelvis Thoracic/Lumbar Spine: lumbar spinal tenderness Skin Rashes: no rashes Extrem General: Yes no clubbing, cyanosis or edema Right lower extremity: knee Details: tenderness (mild) Office Meds tuberculin PPD Performing Provider: Yash Zambrano MD Administered by: Laina Corea RN on 05/24/23 15:49 Dose Route Admin Location Lot Number Expiration Date 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 0.1 mL intradermal left forearm [id number] 03/31/25 58711-315-03 [employer] Results AMB Hemoglobin A1c AMB Hemoglobin A1c 6.5 % Last Edit by Socorro Hassan on 05/24/23 15:35 Results Reviewed Results Reviewed: Laboratory Last Values Hgb A1c (Clinic) 6.5 % (4.0-6.0) H 05/24/23 15:33 05/24/23 05/24/23 05/24/23 08:52 08:52 08:52 WBC 9.5 Hgb 14.9 Hct 45.0 Plt Count 239 Sodium 139 Potassium 4.0 Creatinine 0.86 Estimated GFR > 60 Fasting Glucose 154 H Hemoglobin A1c % 6.6 Calcium 9.8 AST 38 H ALT 56 H Triglycerides 260 Cholesterol 238 LDL Cholesterol, Calc 151 HDL Cholesterol 35 25-OH Vitamin D Total 38.0 Ur Specific [place] Urine Protein Urine Glucose (UA) Urine Blood Microalb/Creat Ratio 05/24/23 05/24/23 09:00 09:00 WBC Hgb Hct Plt Count Sodium Potassium Creatinine Estimated GFR Fasting Glucose Hemoglobin A1c % Calcium AST ALT Triglycerides Cholesterol LDL Cholesterol, Calc HDL Cholesterol 25-OH Vitamin D Total Ur Specific [place] 1.025 Urine Protein Negative Urine Glucose (UA) Negative Urine Blood Negative Microalb/Creat Ratio 18.2 Assessment and Plan Assessment & Plan (1) Dyslipidemia: Code(s): E78.5 - Hyperlipidemia, unspecified Plan: Results of his labs done earlier today reviewed and discussed with patient Reinforced low cholesterol diet Continue Rosuvastatin 5 mg QD Will recheck labs in 3 months for follow up (2) Diabetes mellitus: Code(s): E11.9 - Type 2 diabetes mellitus without complications Qualifiers: Diabetes mellitus complication status: without complication Diabetes mellitus chcf insulin use: without residential property consultant use Diabetes mellitus type: type 2 Qualified Code(s): E11.9 - Type 2 diabetes mellitus without complications Plan: HgbA1c is at 6.6% on his labs done earlier today (was at 7.0 % a few months ago) - goal is at least <7.0% Reinforced diabetic diet Continue Jardiance 25 mg Q AM; is also on Metformin ER 500 mg QD but patient admits that he has not been taking this for a few weeks now as he often gets an upset stomach whenever he takes his Metformin As his HgbA1c appears to have actually improved from his last visit even though he stopped taking his Metformin ER a few weeks ago, will have him continue to HOLD his Metformin ER for now and stay only on Jardiance for his DM (3) Benign essential hypertension: Code(s): I10 - Essential (primary) hypertension Plan: Reinforced low sodium diet - goal is systolic BP of 120 mm or less Continue Atenolol 25 mg QD (4) GERD without esophagitis: Code(s): K21.9 - Gastro-esophageal reflux disease without esophagitis Plan: Dietary restrictions reinforced Continue Omeprazole 20 mg QD (5) Neuropathy: Code(s): G62.9 - Polyneuropathy, unspecified Plan: His previous legs symptoms appear to have improved somewhat with Nortriptyline Continue Nortriptyline 25 mg Q HS If symptoms persist or progress despite Rx, will consider sending him for EMG & NCV for further evaluation (6) Right knee pain: Code(s): M25.561 - Pain in right knee Qualifiers: Chronicity: unspecified Qualified Code(s): M25.561 - Pain in right knee Plan: Right knee x-rays done a few months ago revealed (+) superior patellar insertion enthesopathy Patient states that his right knee pain has been quite manageable lately (7) Low back pain: Code(s): M54.50 - Low back pain, unspecified Qualifiers: Back pain laterality: right Chronicity: unspecified Sciatica presence: unspecified whether sciatica present Qualified Code(s): M54.50 - Low back pain, unspecified Plan: Reinforced activity and weight-lifting restrictions X-rays of the lumbar spine done in November 2022 revealed (+) mild lumbar spondylosis with mild bilateral SI joint arthritis Will consider referring to physical therapy if his back pain flares up (8) Constipation: Code(s): K59.00 - Constipation, unspecified Qualifiers: Constipation type: unspecified constipation type Qualified Code(s): K59.00 - Constipation, unspecified Plan: Improved - encouraged to continue with increased oral fluids and dietary fiber Continue Amitiza 8 mcg BID and Miralax 17 gm QD (9) Elevated LFTs: Code(s): R79.89 - Other specified abnormal findings of blood chemistry Plan: Improved previously but his LFTs have gone up again on his recent labs - is most likely related to his weight Will continue to monitor his LFTs regularly (10) Obstructive sleep apnea: Code(s): G47.33 - Obstructive sleep apnea (adult) (pediatric) Plan: Continue using his CPAP device when sleeping at night Follow up with Sleep Medicine as scheduled (11) Anxiety: Code(s): F41.9 - Anxiety disorder, unspecified Plan: Continue Clonazepam 1 mg Q HS PRN (12) Obesity (BMI 30-39.9): Code(s): E66.9 - Obesity, unspecified Plan: Reinforced diet/exercise as tolerated/lose weight Plan Per request, PPD placed; patient is reminded to return in 48 to 72 hours for his PPD reading Follow up in 3 months Orders: Orders Comprehensive [place]. Panel Fast 3 Months E78.00 - Pure hypercholesterolemia, unspecified Hemoglobin A1c 3 Months E11.9 - Type 2 diabetes mellitus without complications Lipid Panel 3 Months E78.00 - Pure hypercholesterolemia, unspecified TSH reflex Free T4 3 Months E78.00 - Pure hypercholesterolemia, unspecified Vitamin D 25-OH Total 3 Months E55.9 - Vitamin D deficiency, unspecified Microalbumin, Random (w Creat) 3 Months E11.9 - Type 2 diabetes mellitus without complications Complete Blood Count Auto Diff 3 Months I10 - Essential (primary) hypertension UA CC w/rflx Micro + Cult 3 Months R30.0 - Dysuria AMB PPD Planted Today Z11.1 - Encounter for screening for respiratory tuberculosis AMB Hemoglobin A1c Today E11.9 - Type 2 diabetes mellitus without complications Coding Level of Care Code Est Pt Level 4 (36289) Diagnoses Dyslipidemia E78.5 Diabetes mellitus E11.9 Diabetes mellitus complication status: without complication Diabetes mellitus residential property consultant insulin use: without residential property consultant use Diabetes mellitus type: type 2 Benign essential hypertension I10 GERD without esophagitis K21.9 Neuropathy G62.9 Right knee pain M25.561 Chronicity: unspecified Low back pain M54.50 Back pain laterality: right Chronicity: unspecified Sciatica presence: unspecified whether sciatica present Constipation K59.00 Constipation type: unspecified constipation type Elevated LFTs R79.89 Obstructive sleep apnea G47.33 Anxiety F41.9 Obesity (BMI 30-39.9) E66.9
[2023-05-24 15:03] VITALS: BP 138/90; PULSE 70; O2SAT 96; BMI 37.4
== END 2023-05-24 16:03 | disposition home or self-care (01) ==
PROVIDERS: PCP Internal Medicine; Visit Provider Internal Medicine
DX: E11.620 Type 2 diabetes mellitus with diabetic dermatitis (principal); I10 Essential (primary) hypertension; K21.9 Gastro-esophageal reflux disease without esophagitis; F41.9 Anxiety disorder, unspecified; E78.5 Hyperlipidemia, unspecified; G62.9 Polyneuropathy, unspecified; M25.561 Pain in right knee; M54.50 Low back pain, unspecified; K59.00 Constipation, unspecified; R79.89 Other specified abnormal findings of blood chemistry; G47.33 Obstructive sleep apnea (adult) (pediatric); E66.9 Obesity, unspecified
CPT/HCPCS: 83036; 86580; 99214

== ENCOUNTER 2023-09-06 06:02 | Outpatient (REF) | payer OTHER, SELFPAY ==
[2023-09-06 06:13] LABS: MANUAL DIFF FLAG NO
[2023-09-06 07:07] LABS: Basophils Absolute Auto 0.1 X10*3/uL (0.0-0.2); Basophils Percent Auto 0.9 % (0-2); Eosinophils Absolute Auto 0.2 X10*3/uL (0.0-0.4); Hematocrit 42.3 % (42.0-52.0); Hemoglobin 14.1 g/dl (14.0-18.0); Imm Gran Abs Auto 0.02 X10*3/uL (0.00-0.03); Imm Gran Pct Auto 0.3 % (0.0-0.4); Lymphocytes Absolute Auto 2.6 X10*3/uL (1.2-4.9); Lymphocytes Percent Auto 33.6 % (20-40); Mean Corpuscular HGB Conc 33.3 g/dl (31.0-36.0); Mean Corpuscular Hemoglobin 30.6 pg (27.0-33.0); Mean Corpuscular Volume 91.8 fL (80.0-98.0); Monocytes Absolute Auto 0.9 X10*3/uL (0.1-1.2); Monocytes Percent Auto 11.1 % (2-11); Neutrophils Percent Auto 52.1 % (45-73); Platelet Count 298 X10*3/uL (160-400); Red Blood Count 4.61 X10*6/uL (4.60-5.80); Red Cell Distribution Width 12.7 % (11.0-16.0); White Blood Count 7.7 X10*3/uL (4.8-10.8)
[2023-09-06 07:14] LABS: Estimated Average Glucose 134 mg/dL; Hemoglobin A1c % 6.3 % (<6.0)
[2023-09-06 07:32] LABS: Alanine Aminotransferase 33 U/L (0-40); Albumin Level 4.3 g/dL (3.5-5.0); Alkaline Phosphatase 122 U/L (39-117); Anion Gap 13 (12-20); Aspartate Amino Transferase 23 U/L (5-37); Bilirubin Total 0.6 mg/dL (0.0-1.0); Blood Urea Nitrogen 10 mg/dL (9-16); Calcium 9.1 mg/dL (8.4-10.2); Carbon Dioxide 26 mmol/L (22-29); Chloride 104 mmol/L (96-108); Cholesterol 191 mg/dL (<200); Estimated Glomerular Filt Rate > 60; Glucose Fasting 128 mg/dL (60-99); HDL Cholesterol 39 mg/dL (>40); LDL Cholesterol Calculated 131 mg/dL (<100); Potassium 3.5 mmol/L (3.3-5.1); Sodium 139 mmol/L (135-145); Total Protein 7.7 g/dL (6.5-8.0); Triglycerides 105 mg/dL (<150)
[2023-09-06 07:43] LABS: Appearance Urine Clear; Color Urine Yellow; Glucose Urine UA Negative (Negative); Leukocyte Esterase Urine Negative (Negative); Nitrite Urine Negative (Negative); Specific Gravity - Urine 1.015 (1.005-1.025); Urine Blood Negative (Negative); Urine Ketones Negative (Negative); Urine Protein Negative (Neg-Trace)
[2023-09-06 07:47] LABS: TSH reflex Free T4 2.89 uIU/mL (0.32-4.0); Vitamin D 25-OH Total 47.5 ng/mL (>30)
[2023-09-06 08:07] LABS: Creatinine Urine 95.43 mg/dL
== END 2023-09-06 06:03 | disposition home or self-care (01) ==
LOC: HO.LAB 06:02
PROVIDERS: PCP Internal Medicine; Visit Provider Internal Medicine
DX: I10 Essential (primary) hypertension (principal); E11.9 Type 2 diabetes mellitus without complications; E55.9 Vitamin D deficiency, unspecified; R30.0 Dysuria; E78.00 Pure hypercholesterolemia, unspecified
CPT/HCPCS: 36415; 80053; 80061; 81003; 82043; 82306; 82570; 83036; 84443; 85025

== ENCOUNTER 2023-09-07 09:57 | Outpatient (AMB) | payer OTHER, SELFPAY ==
[2023-09-07 10:04] VITALS: BP 132/90; PULSE 74; O2SAT 96; BMI 37.0
--- NOTE | 2023-09-07 10:04 | MHC.PC.OV ---
Vital Signs 09/07/23 10:04 Height 5 ft 11 in Weight 265 lb 8 oz BMI 37.0 BP 132/90 H Blood Pressure Location Lt brachial Position Sitting Pulse 74 Pulse Source Pulse Oximeter Pulse Oximetry (%) 96 Oxygen Delivery Method Room Air Intake Visit Reasons: hyperlipidemia, DM, HTN Blanket Binder Required: No Accompanied by: Self / Same As Patient Allergies duloxetine [Cymbalta] Allergy (Unknown, Verified 09/07/23 10:54) nausea , vomiting gabapentin Allergy (Unknown, Verified 09/07/23 10:54) dizziness, nausea shellfish derived Allergy (Unknown, Verified 09/07/23 10:54) Unknown Medication List - Last Reconciled 09/07/23 by Yash Zambrano MD atenolol 25 mg PO DAILY blood sugar diagnostic ([email or web address] Ultra Test strips) DIRECTED TO TEST BLOOD SUGAR DAILY clonazepam 1 mg PO BEDTIME PRN 30 days lancets ([email or web address] Delica Plus Lancet) 30 gauge miscellaneous DAILY omeprazole 20 mg PO BID 90 days Tobacco use date assessed: 09/07/23 Dental Screening Dental Screen Date: 09/07/23 Did you have a dental visit in the last 12 months?: No Did you have a dental problem in the last 6 months where you did not have access to dental care?: No Was dental information given to patient?: No HPI hyperlipidemia, DM, HTN HPI Details Patient comes in today for his follow up visit States that he feels okay He denies any headaches or dizziness Denies any chest pains, no SOB No nausea/vomiting, no abdominal pain No change in bowel habits noted Had his follow up labs done yesterday - to discuss his results [facility] Medical History Neuropathy Anxiety Obesity (BMI 30-39.9) Obstructive sleep apnea Elevated LFTs GERD without esophagitis Constipation Dyslipidemia Benign essential hypertension Diabetes mellitus Surgical History History of colonoscopy History of cholecystectomy (~12/19/17) Family History Father No problems noted. Mother Depression Myocardial infarction Brother In good health Brother In good health Daughter In good health Daughter In good health Daughter In good health Social History Housing: House Alcohol intake: current Alcohol intake frequency: holidays/special occasions only Patient Tobacco Use Status: Former Tobacco user Quit Date: 20 years ago e-Cigarette/Vaping Use: Never Used Second Hand Smoke Exposure: Yes service: No Current occupational status: disabled Cognitive needs: No Hearing needs: No Vision needs: No Questionnaire PHQ-9 Over the last 2 weeks, how often have you been bothered by any of the following problems? 1. Little interest or pleasure in doing things: not at all 2. Feeling down, depressed, or hopeless: not at all 3. Trouble falling or staying asleep, or sleeping too much: not at all 4. Feeling tired or having little energy: not at all 5. Poor appetite or overeating: not at all 6. Feeling bad about yourself - or that you are a failure or have let yourself or your family down: not at all 7. Trouble concentrating on things, such as reading the newspaper or watching television: not at all 8. Moving or speaking so slowly that other people could have noticed. Or the opposite - being so fidgety or restless that you have been moving around a lot more than usual: not at all 9. Thoughts that you would be better off or of hurting yourself in some way: not at all Total score: 0 Depression Screening Interpretation: Negative Depression Screening Done: Yes 84289 - PHQ-9 Billing: Yes Source: Developed by Drs. Reji Ureña, Antionette Dickey, Ronald Ignacio and colleagues, with an educational shelby from [employer]. Thrive Questionnaire Date Thrive assessed: 09/07/23 I am a: Patient What is your living situation today?: I have a steady place to live Within the past 12 months, did the food you bought not last and you didn't have the money to get more?: Never true Within the past 12 months, did you worry whether your food would run out before you got money to buy more?: Never true Do you have trouble paying for medicines?: No Do you have trouble getting transportation to medical appointments?: No Do you have trouble paying your heating and electricity bill?: No Do you have trouble taking care of your child, family member or friend?: No Do you have trouble with day-to-day activities such as bathing, preparing meals, shopping, managing finances, etc.?: No Are you currently unemployed and looking for a job?: No Are you interested in more education?: No Please select the resources that you would like help with: None Currently or been in a relationship where the following occur: no concerns reported AUDIT C Alcohol Use Questionnaire (AUDIT-C) 1. How often do you have a drink containing alcohol?: Monthly or less 2. How many drinks containing alcohol do you have on a typical day when you are drinking?: 1 or 2 3. How often do you have six or more drinks on one occasion?: Never Total Score: 1 Score Reviewed/Action Taken: Yes SIRENA-7 AMB Questionnaire SIRENA-7 Date SIRENA - 7 assessed: 09/07/23 Feeling nervous, anxious, or on edge: 0 = Not at all Not being able to stop or control worryin = Not at all Worrying too much about different things: 0 = Not at all Trouble relaxin = Not at all Being so restless that it is hard to sit still: 0 = Not at all Becoming easily annoyed or irritable: 0 = Not at all Feeling afraid as if something awful might happen: 0 = Not at all Total SIRENA-7 score (0-4 normal; 5-9 mild; 10-14 moderate; 15-21 severe): 0 Source: Developed by Drs. Reji Ureña, Antionette Dickey, Ronald Ignacio and colleagues, with an educational shelby from [employer]. Review of Systems Const Denies chills, Denies fatigue, Denies fever(s) and Denies headache(s) ENT Denies dysphagia, Denies dizziness, Denies otalgia, Denies headache(s), Denies odynophagia and Denies sore throat Card Denies chest pain, Denies palpitations and Denies dyspnea Resp Denies cough, Denies dyspnea and Denies wheezing GI Denies abdominal pain, Denies constipation, Denies dysphagia, Denies heartburn, Denies diarrhea, Denies nausea, Denies odynophagia and Denies vomiting Denies dysuria, Denies nocturia and Denies urinary frequency Musc Reports back pain (on and off) Neuro Denies dizziness and Denies headache(s) Endo Denies fatigue and Denies palpitations Aller/Immun Denies wheezing Physical exam (Primary Care) Vital Signs: Last Vital Signs Pulse 74 09/07/23 10:04 BP 132/90 H 09/07/23 10:04 Pulse Ox 96 09/07/23 10:04 Oxygen Delivery Method Room Air 09/07/23 10:04 BMI result Body Mass Index 37.0 Tobacco/Smoking Status: Tobacco use Status Tobacco use date assessed 09/07/23 09/07/23 10:10 Patient Tobacco Use Status Former Tobacco user 09/07/23 10:10 e-Cigarette/Vaping Use Never Used 09/07/23 10:10 PHQ-9: PHQ-9 Score PHQ-9: Total score 0 09/07/23 10:10 Depression Screening Interpretation: Negative Thrive Assessment: Date of Thrive Assessment Date Thrive assessed 09/07/23 09/07/23 10:10 Currently or been in a relationship where the following occur: no concerns reported Const General: no acute distress and alert HENMT Ears: TM's normal bilaterally and EAC's normal Throat: Yes posterior oropharynx normal and Yes tonsils normal (no TP congestion) Neck Neck: Yes no lymphadenopathy and Yes supple Resp Auscultation: clear to auscultation bilaterally, no rales and no wheezes Cardio Rate: regular rate Rhythm: regular rhythm Heart sounds: no murmurs GI Palpation (GI): Soft to palpation and nontender Auscultation: normal bowel sounds Back/Spine/Pelvis Thoracic/Lumbar Spine: lumbar spinal tenderness Skin Rashes: no rashes Extrem General: Yes no clubbing, cyanosis or edema Right lower extremity: knee Details: tenderness (mild) Results Reviewed Results Reviewed: Laboratory Tests 09/06/23 09/06/23 06:11 06:15 WBC 7.7 Hgb 14.1 Hct 42.3 Plt Count 298 Sodium 139 Potassium 3.5 Creatinine 0.77 Estimated GFR > 60 Fasting Glucose 128 H Hemoglobin A1c % 6.3 H Calcium 9.1 D AST 23 ALT 33 Triglycerides 105 Cholesterol 191 LDL Cholesterol, Calc 131 H HDL Cholesterol 39 L 25-OH Vitamin D Total 47.5 TSH 2.89 Ur Specific [place] 1.015 Urine Protein Negative Urine Glucose (UA) Negative Urine Blood Negative Microalb/Creat Ratio 67.0 H Assessment and Plan Assessment & Plan (1) Dyslipidemia: Code(s): E78.5 - Hyperlipidemia, unspecified Plan: Results of his labs done yesterday reviewed and discussed with patient - advised that his LDL cholesterol has improved by about 20 points from previous but his triglyceride level has improved significantly and has dropped by about 150 points He was on Rosuvastatin 5 mg QD in the past but he has decided to try controlling his cholesterol with diet, exercise and weight loss alone and stopped taking this earlier this year Reinforced low cholesterol diet; as his numbers appear to be improving currently without any Rx, will continue to hold off on Rx at this time Will recheck his labs and fasting lipids in 4 months for follow up (2) Diabetes mellitus: Code(s): E11.9 - Type 2 diabetes mellitus without complications Qualifiers: Diabetes mellitus type: type 2 Diabetes mellitus longterm insulin use: without longterm use Diabetes mellitus complication status: without complication Qualified Code(s): E11.9 - Type 2 diabetes mellitus without complications Plan: HgbA1c is at 6.3% on his labs done yesterday (was at 6.6 % a few months ago) - goal is at least <7.0% Reinforced diabetic diet He was on Jardiance 25 mg Q AM but he stopped taking this a while back as his insurance would not cover the Rx Was also supposed to be on Metformin ER 500 mg QD but patient admits that he has not been taking this for a few months now as he often gets an upset stomach whenever he takes Metformin As his HgbA1c appears to have actually improved from his last visit even though he has not been taking any Rx for his diabetes over the past few months, will have him continue with diet modification and exercise alone with no Rx at this time He has his eye exam scheduled for tomorrow in [place] [facility] (3) Benign essential hypertension: Code(s): I10 - Essential (primary) hypertension Plan: Reinforced low sodium diet - goal is systolic BP of 120 mm or less Continue Atenolol 25 mg QD (4) GERD without esophagitis: Code(s): K21.9 - Gastro-esophageal reflux disease without esophagitis Plan: Dietary restrictions reinforced Continue Omeprazole 20 mg BID (5) Neuropathy: Code(s): G62.9 - Polyneuropathy, unspecified Plan: His previous legs symptoms appear to have improved lately He was started on Nortriptyline at bedtime previously to help with his symptoms but states that he has not taken this in a while now and has been doing okay without the med If symptoms progress, will consider sending him for EMG & NCV for further evaluation (6) Right knee pain: Code(s): M25.561 - Pain in right knee Qualifiers: Chronicity: unspecified Qualified Code(s): M25.561 - Pain in right knee Plan: Right knee x-rays done a few months ago revealed (+) superior patellar insertion enthesopathy Patient states that his right knee pain has been quite manageable lately (7) Low back pain: Code(s): M54.50 - Low back pain, unspecified Qualifiers: Chronicity: unspecified Back pain laterality: right Sciatica presence: unspecified whether sciatica present Qualified Code(s): M54.50 - Low back pain, unspecified Plan: Reinforced activity and weight-lifting restrictions X-rays of the lumbar spine done in November 2022 revealed (+) mild lumbar spondylosis with mild bilateral SI joint arthritis Will consider referring to physical therapy if his back pain flares up (8) Constipation: Code(s): K59.00 - Constipation, unspecified Qualifiers: Constipation type: unspecified constipation type Qualified Code(s): K59.00 - Constipation, unspecified Plan: Improved - encouraged to continue with increased oral fluids and dietary fiber Used to take Amitiza 8 mcg BID and Miralax 17 gm QD in the past but states that he currently is only taking some OTC stool softeners daily (9) Elevated LFTs: Code(s): R79.89 - Other specified abnormal findings of blood chemistry Plan: His LFTs have improved again on his recent labs - was most likely related to his weight Will continue to monitor his LFTs regularly (10) Obstructive sleep apnea: Code(s): G47.33 - Obstructive sleep apnea (adult) (pediatric) Plan: States that he is no longer using his CPAP device when sleeping at night as his unit is very old and he has not seen Sleep Medicine in a while now Have offered to refer him back but he would like to hold off and continue to try losing weight for now to see if losing weight will be enough to help address his sleep apnea (11) Anxiety: Code(s): F41.9 - Anxiety disorder, unspecified Plan: Continue Clonazepam 1 mg Q HS PRN (12) Obesity (BMI 30-39.9): Code(s): E66.9 - Obesity, unspecified Plan: Reinforced diet/exercise as tolerated/lose weight Plan Follow up in 4 months Orders: Orders Complete Blood Count Auto Diff 4 Months I10 - Essential (primary) hypertension Comprehensive [place]. Panel Fast 4 Months E78.00 - Pure hypercholesterolemia, unspecified Vitamin D 25-OH Total 4 Months E55.9 - Vitamin D deficiency, unspecified Hemoglobin A1c 4 Months E11.9 - Type 2 diabetes mellitus without complications Lipid Panel 4 Months E78.00 - Pure hypercholesterolemia, unspecified Microalbumin, Random (w Creat) 4 Months E11.9 - Type 2 diabetes mellitus without complications TSH reflex Free T4 4 Months E78.00 - Pure hypercholesterolemia, unspecified UA CC w/rflx Micro + Cult 4 Months R30.0 - Dysuria Coding Level of Care Code Est Pt Level 4 (91592) Diagnoses Dyslipidemia E78.5 Type 2 diabetes mellitus without complication, without long-term current use of insulin E11.9 Diabetes mellitus type: type 2 Diabetes mellitus longterm insulin use: without intermediate manager use Diabetes mellitus complication status: without complication Benign essential hypertension I10 GERD without esophagitis K21.9 Neuropathy G62.9 Right knee pain, unspecified chronicity M25.561 Chronicity: unspecified Right low back pain, unspecified chronicity, unspecified whether sciatica present M54.50 Chronicity: unspecified Back pain laterality: right Sciatica presence: unspecified whether sciatica present Constipation, unspecified constipation type K59.00 Constipation type: unspecified constipation type Elevated LFTs R79.89 Obstructive sleep apnea G47.33 Anxiety F41.9 Obesity (BMI 30-39.9) E66.9
== END 2023-09-07 11:16 | disposition home or self-care (01) ==
PROVIDERS: PCP Internal Medicine; Visit Provider Internal Medicine
DX: E78.5 Hyperlipidemia, unspecified (principal); E11.42 Type 2 diabetes mellitus with diabetic polyneuropathy; I10 Essential (primary) hypertension; K21.9 Gastro-esophageal reflux disease without esophagitis; G62.9 Polyneuropathy, unspecified; M25.561 Pain in right knee; M54.50 Low back pain, unspecified; K59.00 Constipation, unspecified; R79.89 Other specified abnormal findings of blood chemistry; G47.33 Obstructive sleep apnea (adult) (pediatric); F41.9 Anxiety disorder, unspecified; E66.9 Obesity, unspecified
CPT/HCPCS: 99214

== ENCOUNTER 2024-01-18 06:03 | Outpatient (REF) | payer OTHER, SELFPAY ==
[2024-01-18 06:35] LABS: MANUAL DIFF FLAG NO
[2024-01-18 07:27] LABS: Estimated Average Glucose 131 mg/dL; Hemoglobin A1C 151.1776 umol/L; Hemoglobin A1c % 6.2 % (<6.0)
[2024-01-18 07:44] LABS: Basophils Absolute Auto 0.1 X10*3/uL (0.0-0.2); Basophils Percent Auto 0.9 % (0-2); Eosinophils Absolute Auto 0.2 X10*3/uL (0.0-0.4); Eosinophils Percent Auto 1.9 % (0-4); Hematocrit 41.7 % (42.0-52.0); Hemoglobin 13.7 g/dl (14.0-18.0); Imm Gran Abs Auto 0.02 X10*3/uL (0.00-0.03); Imm Gran Pct Auto 0.2 % (0.0-0.4); Lymphocytes Absolute Auto 1.9 X10*3/uL (1.2-4.9); Lymphocytes Percent Auto 23.1 % (20-40); Mean Corpuscular HGB Conc 32.9 g/dl (31.0-36.0); Mean Corpuscular Volume 91.4 fL (80.0-98.0); Mean Platelet Volume 11.5 fL (9.4-12.4); Monocytes Absolute Auto 0.8 X10*3/uL (0.1-1.2); Monocytes Percent Auto 9.6 % (2-11); Neutrophils Absolute Auto 5.2 x10*3/uL (2.0-8.3); Neutrophils Percent Auto 64.3 % (45-73); Platelet Count 272 X10*3/uL (160-400); Red Blood Count 4.56 X10*6/uL (4.60-5.80); Red Cell Distribution Width 13.1 % (11.0-16.0)
[2024-01-18 07:48] LABS: Alanine Aminotransferase 32 U/L (0-40); Albumin Level 4.2 g/dL (3.5-5.0); Alkaline Phosphatase 125 U/L (39-117); Anion Gap 12 (12-20); Aspartate Amino Transferase 21 U/L (5-37); Blood Urea Nitrogen 18 mg/dL (9-16); Calcium 9.2 mg/dL (8.4-10.2); Carbon Dioxide 26 mmol/L (22-29); Chloride 106 mmol/L (96-108); Cholesterol 188 mg/dL (<200); Estimated Glomerular Filt Rate > 60; Glucose Fasting 147 mg/dL (60-99); HDL Cholesterol 40 mg/dL (>40); LDL Cholesterol Calculated 125 mg/dL (<100); Potassium 3.8 mmol/L (3.3-5.1); Sodium 140 mmol/L (135-145); Total Protein 7.6 g/dL (6.5-8.0); Triglycerides 115 mg/dL (<150)
[2024-01-18 08:04] LABS: TSH reflex Free T4 2.03 uIU/mL (0.32-4.0); Vitamin D 25-OH Total 29.9 ng/mL (>30)
[2024-01-18 08:42] LABS: Appearance Urine Clear; Color Urine Yellow; Glucose Urine UA Negative (Negative); Leukocyte Esterase Urine Negative (Negative); Nitrite Urine Negative (Negative); Specific Gravity - Urine 1.025 (1.005-1.025); Urine Blood Negative (Negative); Urine Ketones Negative (Negative); Urine Protein Negative (Neg-Trace)
[2024-01-18 09:08] LABS: Creatinine Urine 147.25 mg/dL; Microalbum/Creatinine Ratio Ur 16.2 ug/mg cr (<30)
== END 2024-01-18 06:04 | disposition home or self-care (01) ==
LOC: HO.LAB 06:03
PROVIDERS: PCP Internal Medicine; Visit Provider Internal Medicine
DX: I10 Essential (primary) hypertension (principal); E55.9 Vitamin D deficiency, unspecified; R30.0 Dysuria; E78.00 Pure hypercholesterolemia, unspecified; E11.9 Type 2 diabetes mellitus without complications
CPT/HCPCS: 36415; 80053; 80061; 81003; 82043; 82306; 82570; 83036; 84443; 85025

== ENCOUNTER 2024-01-20 12:43 | Outpatient (AMB) | payer OTHER, SELFPAY ==
--- NOTE | 2024-01-20 12:58 | MHC.PC.OV ---
Vital Signs 01/20/24 13:00 01/20/24 13:05 Height 5 ft 11 in Weight 269 lb 2 oz BMI 37.5 BP 166/90 H 160/86 H Blood Pressure Location Lt brachial Lt brachial Position Sitting Sitting Pulse 81 Pulse Source Pulse Oximeter Pulse Oximetry (%) 96 Oxygen Delivery Method Room Air Intake Visit Reasons: DM, hyperlipidemia, HTN, TRACY Intake Note: Patient is here to follow up on DM, HTN, TRACY, Hyperlipdemia. 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 per policy Accompanied by: Self / Same As Patient Allergies duloxetine [Cymbalta] Allergy (Unknown, Verified 01/20/24 13:22) nausea , vomiting gabapentin Allergy (Unknown, Verified 01/20/24 13:22) dizziness, nausea shellfish derived Allergy (Unknown, Verified 01/20/24 13:22) Unknown Medication List - Last Reconciled 01/20/24 by Yash Zambrano MD atenolol 25 mg PO DAILY blood sugar diagnostic ([employer] Ultra Test strips) DIRECTED TO TEST BLOOD SUGAR DAILY clonazepam 1 mg PO BEDTIME PRN 30 days lancets (Candid iouch Delica Plus Lancet) 30 gauge miscellaneous DAILY omeprazole 20 mg PO BID 90 days Tobacco use date assessed: 01/20/24 Dental Screening Dental Screen Date: 01/20/24 Did you have a dental visit in the last 12 months?: Yes Did you have a dental problem in the last 6 months where you did not have access to dental care?: No Was dental information given to patient?: Patient has dentist HPI DM, hyperlipidemia, HTN, TRACY HPI Details Patient comes in today for his follow up visit States that he feels okay He denies any headaches or dizziness Denies any chest pains, no SOB No nausea/vomiting, no abdominal pain No change in bowel habits noted Had his follow up labs done a couple of days ago - to discuss his results FOR[facility]LY [facility], [facility] Medical History Neuropathy Anxiety Obesity (BMI 30-39.9) Obstructive sleep apnea Elevated LFTs GERD without esophagitis Constipation Dyslipidemia Benign essential hypertension Diabetes mellitus Surgical History History of colonoscopy History of cholecystectomy (~12/19/17) Family History Father No problems noted. Mother Depression Myocardial infarction Brother In good health Brother In good health Daughter In good health Daughter In good health Daughter In good health Social History Housing: House Alcohol intake: current Alcohol intake frequency: holidays/special occasions only Patient Tobacco Use Status: Former Tobacco user Quit Date: 20 years ago e-Cigarette/Vaping Use: Never Used Second Hand Smoke Exposure: Yes service: No Current occupational status: disabled Cognitive needs: No Hearing needs: No Vision needs: No Questionnaire PHQ-9 Over the last 2 weeks, how often have you been bothered by any of the following problems? 1. Little interest or pleasure in doing things: not at all 2. Feeling down, depressed, or hopeless: not at all 3. Trouble falling or staying asleep, or sleeping too much: not at all 4. Feeling tired or having little energy: not at all 5. Poor appetite or overeating: not at all 6. Feeling bad about yourself - or that you are a failure or have let yourself or your family down: not at all 7. Trouble concentrating on things, such as reading the newspaper or watching television: not at all 8. Moving or speaking so slowly that other people could have noticed. Or the opposite - being so fidgety or restless that you have been moving around a lot more than usual: not at all 9. Thoughts that you would be better off or of hurting yourself in some way: not at all Total score: 0 Depression Screening Interpretation: Negative Depression Screening Done: Yes [id number] - PHQ-9 Billing: Yes Source: Developed by Drs. Reji Ureña, Antionette Dickey, Ronald Ignacio and colleagues, with an educational shelby from [employer]. Thrive Questionnaire Date Thrive assessed: 01/20/24 I am a: Patient What is your living situation today?: I have a steady place to live Within the past 12 months, did the food you bought not last and you didn't have the money to get more?: Never true Within the past 12 months, did you worry whether your food would run out before you got money to buy more?: Never true Do you have trouble paying for medicines?: No Do you have trouble getting transportation to medical appointments?: No Do you have trouble paying your heating and electricity bill?: No Do you have trouble taking care of your child, family member or friend?: No Do you have trouble with day-to-day activities such as bathing, preparing meals, shopping, managing finances, etc.?: No Are you currently unemployed and looking for a job?: No Are you interested in more education?: No Currently or been in a relationship where the following occur: no concerns reported THRIVE Score: 0 AUDIT C Alcohol Use Questionnaire (AUDIT-C) 1. How often do you have a drink containing alcohol?: Monthly or less 2. How many drinks containing alcohol do you have on a typical day when you are drinking?: 1 or 2 Total Score: 1 Score Reviewed/Action Taken: Yes SIRENA-7 AMB Questionnaire SIRENA-7 Date SIRENA - 7 assessed: 01/20/24 Feeling nervous, anxious, or on edge: 1 = Several days Not being able to stop or control worryin = Not at all Worrying too much about different things: 0 = Not at all Trouble relaxin = Not at all Being so restless that it is hard to sit still: 0 = Not at all Becoming easily annoyed or irritable: 0 = Not at all Feeling afraid as if something awful might happen: 0 = Not at all Total SIRENA-7 score (0-4 normal; 5-9 mild; 10-14 moderate; 15-21 severe): 1 Source: Developed by Drs. Reij Ureña, Antionette Dickey, Ronald Ignacio and colleagues, with an educational shelby from [employer]. Review of Systems Const Denies chills, Denies fatigue, Denies fever(s) and Denies headache(s) ENT Denies dysphagia, Denies dizziness, Denies otalgia, Denies headache(s), Denies odynophagia and Denies sore throat Card Denies chest pain, Denies palpitations and Denies dyspnea Resp Denies cough, Denies dyspnea and Denies wheezing GI Denies abdominal pain, Denies constipation, Denies dysphagia, Denies heartburn, Denies diarrhea, Denies nausea, Denies odynophagia and Denies vomiting Denies dysuria, Denies nocturia and Denies urinary frequency Musc Reports back pain (on and off) Neuro Denies dizziness and Denies headache(s) Endo Denies fatigue and Denies palpitations Aller/Immun Denies wheezing Physical exam (Primary Care) Vital Signs: Last Vital Signs Pulse 81 01/20/24 13:00 BP 160/86 H 01/20/24 13:05 Pulse Ox 96 01/20/24 13:00 Oxygen Delivery Method Room Air 01/20/24 13:00 BMI result Body Mass Index 37.5 Tobacco/Smoking Status: Tobacco use Status Tobacco use date assessed 01/20/24 01/20/24 13:06 Patient Tobacco Use Status Former Tobacco user 01/20/24 13:06 e-Cigarette/Vaping Use Never Used 01/20/24 13:06 PHQ-9: PHQ-9 Score PHQ-9: Total score 0 01/20/24 13:06 Depression Screening Interpretation: Negative Thrive Assessment: Date of Thrive Assessment Date Thrive assessed 01/20/24 01/20/24 13:06 Currently or been in a relationship where the following occur: no concerns reported Const General: no acute distress and alert HENMT Ears: TM's normal bilaterally and EAC's normal Throat: Yes posterior oropharynx normal and Yes tonsils normal (no TP congestion) Neck Neck: Yes no lymphadenopathy and Yes supple Resp Auscultation: clear to auscultation bilaterally, no rales and no wheezes Cardio Rate: regular rate Rhythm: regular rhythm Heart sounds: no murmurs GI Palpation (GI): Soft to palpation and nontender Auscultation: normal bowel sounds Back/Spine/Pelvis Thoracic/Lumbar Spine: lumbar spinal tenderness Skin Rashes: no rashes Extrem General: Yes no clubbing, cyanosis or edema Right lower extremity: knee Details: tenderness (mild) Results Reviewed Results Reviewed: Laboratory Tests 01/18/24 01/18/24 01/18/24 05:30 05:30 05:30 WBC Hgb Hct Plt Count Sodium Potassium Creatinine Estimated GFR Fasting Glucose Hemoglobin A1c % Calcium AST ALT Triglycerides Cholesterol LDL Cholesterol, Calc HDL Cholesterol 25-OH Vitamin D Total TSH Ur Specific [place] 1.025 Urine Protein Negative Urine Glucose (UA) Negative Urine Blood Negative Urine Nitrite Negative Ur Leukocyte Esterase Negative Microalb/Creat Ratio 16.2 01/18/24 01/18/2401/17/24 06:33 06:33 06:33 WBC 8.0 Hgb 13.7 L Hct 41.7 L Plt Count 272 Sodium 140 Potassium 3.8 Creatinine 0.88 Estimated GFR > 60 Fasting Glucose 147 H Hemoglobin A1c % 6.2 H Calcium 9.2 AST 21 ALT 32 Triglycerides 115 Cholesterol 188 LDL Cholesterol, Calc 125 H HDL Cholesterol 40 L 25-OH Vitamin D Total 29.9 L TSH 2.03 Ur Specific [place] Urine Protein Urine Glucose (UA) Urine Blood Urine Nitrite Ur Leukocyte Esterase Microalb/Creat Ratio Assessment and Plan Assessment & Plan (1) Dyslipidemia: Code(s): E78.5 - Hyperlipidemia, unspecified Plan: Results of his labs done a couple of days ago reviewed and discussed with patient - advised that his total and LDL cholesterol levels have only improved by a couple of points so they are mostly unchanged from a few months ago He was on Rosuvastatin 5 mg QD in the past but he has decided to try controlling his cholesterol with diet, exercise and weight loss alone and stopped taking this earlier this year Reinforced low cholesterol diet; as his numbers have improved and currently appears stable without any Rx, will continue to hold off on Rx at this time Will recheck his labs and fasting lipids in 4 months for follow up (2) Diabetes mellitus: Code(s): E11.9 - Type 2 diabetes mellitus without complications Qualifiers: Diabetes mellitus type: type 2 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: without marine oil terminal superintendent use Diabetes mellitus complication status: without complication Qualified Code(s): E11.9 - Type 2 diabetes mellitus without complications Plan: HgbA1c is at 6.2% on his labs done a couple of days ago (was at 6.3 % a few months ago) - goal is at least <7.0% Reinforced diabetic diet He was on Jardiance 25 mg Q AM but he stopped taking this a while back as his insurance would not cover the Rx Was also supposed to be on Metformin ER 500 mg QD but patient admits that he has not been taking this for a few months now as he often gets an upset stomach whenever he takes Metformin As his HgbA1c have actually improved from previous and appears stable recently, will have him continue with diet modification and exercise alone with no Rx at this time (3) Benign essential hypertension: Code(s): I10 - Essential (primary) hypertension Plan: Reinforced low sodium diet - goal is systolic BP of 120 mm or less Continue Atenolol 25 mg QD Will start him additionally on Losartan 50 mg QD He is reminded to continue monitoring his blood pressure regularly (4) GERD without esophagitis: Code(s): K21.9 - Gastro-esophageal reflux disease without esophagitis Plan: Dietary restrictions reinforced Continue Omeprazole 20 mg BID (5) Neuropathy: Code(s): G62.9 - Polyneuropathy, unspecified Plan: His previous legs symptoms appear to have improved lately He was started on Nortriptyline at bedtime previously to help with his symptoms but states that he has not taken this in a while now and has been doing okay without the med If symptoms progress, will consider sending him for EMG & NCV for further evaluation (6) Right knee pain: Code(s): M25.561 - Pain in right knee Qualifiers: Chronicity: unspecified Qualified Code(s): M25.561 - Pain in right knee Plan: Right knee x-rays done a few months ago revealed (+) superior patellar insertion enthesopathy Patient states that his right knee pain has been quite manageable lately (7) Low back pain: Code(s): M54.50 - Low back pain, unspecified Qualifiers: Chronicity: unspecified Back pain laterality: right Sciatica presence: unspecified whether sciatica present Qualified Code(s): M54.50 - Low back pain, unspecified Plan: Reinforced activity and weight-lifting restrictions X-rays of the lumbar spine done in November 2022 revealed (+) mild lumbar spondylosis with mild bilateral SI joint arthritis Will consider referring to physical therapy if his back pain flares up (8) Constipation: Code(s): K59.00 - Constipation, unspecified Qualifiers: Constipation type: unspecified constipation type Qualified Code(s): K59.00 - Constipation, unspecified Plan: Improved - encouraged to continue with increased oral fluids and dietary fiber Used to take Amitiza 8 mcg BID and Miralax 17 gm QD in the past but states that he currently is only taking some OTC stool softeners daily (9) Elevated LFTs: Code(s): R79.89 - Other specified abnormal findings of blood chemistry Plan: His LFTs have improved again on his recent labs - was most likely related to his weight Will continue to monitor his LFTs regularly (10) Obstructive sleep apnea: Code(s): G47.33 - Obstructive sleep apnea (adult) (pediatric) Plan: States that he is no longer using his CPAP device when sleeping at night as his unit is very old and he has not seen Sleep Medicine in a while now Have offered to refer him back but he would like to hold off and continue to try losing weight for now to see if losing weight will be enough to help address his sleep apnea (11) Anxiety: Code(s): F41.9 - Anxiety disorder, unspecified Plan: Continue Clonazepam 1 mg Q HS PRN (12) Obesity (BMI 30-39.9): Code(s): E66.9 - Obesity, unspecified Plan: Reinforced diet/exercise as tolerated/lose weight Plan Follow up in 4 months Orders: Orders Lipid Panel 4 Months E78.00 - Pure hypercholesterolemia, unspecified TSH reflex Free T4 4 Months E78.00 - Pure hypercholesterolemia, unspecified UA CC w/rflx Micro + Cult 4 Months R30.0 - Dysuria Vitamin D 25-OH Total 4 Months E55.9 - Vitamin D deficiency, unspecified Hemoglobin A1c 4 Months E11.9 - Type 2 diabetes mellitus without complications Complete Blood Count Auto Diff 4 Months D64.9 - Anemia, unspecified Comprehensive [place]. 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: without snf use Diabetes mellitus complication status: without complication Benign essential hypertension I10 GERD without esophagitis K21.9 Neuropathy G62.9 Right knee pain, unspecified chronicity M25.561 Chronicity: unspecified Right low back pain, unspecified chronicity, unspecified whether sciatica present M54.50 Chronicity: unspecified Back pain laterality: right Sciatica presence: unspecified whether sciatica present Constipation, unspecified constipation type K59.00 Constipation type: unspecified constipation type Elevated LFTs R79.89 Obstructive sleep apnea G47.33 Anxiety F41.9 Obesity (BMI 30-39.9) E66.9
[2024-01-20 13:00] VITALS: BP 166/90; PULSE 81; O2SAT 96; BMI 37.5
[2024-01-20 13:05] VITALS: BP 160/86
== END 2024-01-20 13:49 | disposition home or self-care (01) ==
PROVIDERS: PCP Internal Medicine; Visit Provider Internal Medicine
DX: E78.5 Hyperlipidemia, unspecified (principal); E11.42 Type 2 diabetes mellitus with diabetic polyneuropathy; I10 Essential (primary) hypertension; K21.9 Gastro-esophageal reflux disease without esophagitis; G62.9 Polyneuropathy, unspecified; M25.561 Pain in right knee; M54.50 Low back pain, unspecified; K59.00 Constipation, unspecified; R79.89 Other specified abnormal findings of blood chemistry; G47.33 Obstructive sleep apnea (adult) (pediatric); F41.9 Anxiety disorder, unspecified; E66.9 Obesity, unspecified
CPT/HCPCS: 99214

== ENCOUNTER 2024-05-16 06:29 | Outpatient (REF) | payer OTHER, SELFPAY ==
[2024-05-16 06:41] LABS: MANUAL DIFF FLAG NO
[2024-05-16 07:09] LABS: Basophils Percent Auto 0.5 % (0-2); Eosinophils Absolute Auto 0.1 X10*3/uL (0.0-0.4); Eosinophils Percent Auto 1.6 % (0-4); Hematocrit 46.8 % (42.0-52.0); Hemoglobin 15.7 g/dl (14.0-18.0); Imm Gran Abs Auto 0.03 X10*3/uL (0.00-0.03); Imm Gran Pct Auto 0.4 % (0.0-0.4); Lymphocytes Absolute Auto 1.9 X10*3/uL (1.2-4.9); Lymphocytes Percent Auto 22.7 % (20-40); Mean Corpuscular HGB Conc 33.5 g/dl (31.0-36.0); Mean Corpuscular Hemoglobin 30.7 pg (27.0-33.0); Mean Corpuscular Volume 91.4 fL (80.0-98.0); Mean Platelet Volume 11.1 fL (9.4-12.4); Monocytes Absolute Auto 0.8 X10*3/uL (0.1-1.2); Neutrophils Absolute Auto 5.6 x10*3/uL (2.0-8.3); Neutrophils Percent Auto 65.8 % (45-73); Platelet Count 244 X10*3/uL (160-400); Red Blood Count 5.12 X10*6/uL (4.60-5.80); Red Cell Distribution Width 13.1 % (11.0-16.0); White Blood Count 8.5 X10*3/uL (4.8-10.8)
[2024-05-16 07:19] LABS: Estimated Average Glucose 143 mg/dL; Hemoglobin A1c % 6.6 % (<6.0)
[2024-05-16 07:44] LABS: Alanine Aminotransferase 56 U/L (0-40); Albumin Level 4.5 g/dL (3.5-5.0); Alkaline Phosphatase 139 U/L (39-117); Anion Gap 16 (12-20); Aspartate Amino Transferase 50 U/L (5-37); Bilirubin Total 1.9 mg/dL (0.0-1.0); Blood Urea Nitrogen 16 mg/dL (9-16); Calcium 10.2 mg/dL (8.4-10.2); Carbon Dioxide 25 mmol/L (22-29); Chloride 102 mmol/L (96-108); Cholesterol 259 mg/dL (<200); Estimated Glomerular Filt Rate > 60; Glucose Fasting 150 mg/dL (60-99); HDL Cholesterol 44 mg/dL (>40); LDL Cholesterol Calculated 177 mg/dL (<100); Potassium 4.6 mmol/L (3.3-5.1); Sodium 138 mmol/L (135-145); Total Protein 8.5 g/dL (6.5-8.0); Triglycerides 192 mg/dL (<150)
[2024-05-16 07:55] LABS: TSH reflex Free T4 2.37 uIU/mL (0.32-4.0); Vitamin D 25-OH Total 43.9 ng/mL (>30)
[2024-05-16 08:24] LABS: Appearance Urine Clear; Color Urine Dark Yellow; Glucose Urine UA Negative (Negative); Leukocyte Esterase Urine Negative (Negative); Nitrite Urine Negative (Negative); PH 5.5 (5.0-9.0); Specific Gravity - Urine 1.025 (1.005-1.025); Urine Blood Negative (Negative); Urine Ketones Negative (Negative); Urine Protein Negative (Neg-Trace)
[2024-05-16 09:03] LABS: Creatinine Urine 235.03 mg/dL
== END 2024-05-16 06:30 | disposition home or self-care (01) ==
LOC: HO.LAB 06:29
PROVIDERS: PCP Internal Medicine; Visit Provider Internal Medicine
DX: D64.9 Anemia, unspecified (principal); E78.00 Pure hypercholesterolemia, unspecified; E55.9 Vitamin D deficiency, unspecified; E11.9 Type 2 diabetes mellitus without complications; R30.0 Dysuria
CPT/HCPCS: 36415; 80053; 80061; 81003; 82043; 82306; 82570; 83036; 84443; 85025

== ENCOUNTER 2024-05-18 13:23 | Outpatient (AMB) | payer OTHER, SELFPAY ==
--- NOTE | 2024-05-18 13:33 | MHC.PC.OV ---
Vital Signs 05/18/24 13:39 05/18/24 14:02 Height 5 ft 11 in Weight 273 lb BMI 38.1 BP 164/94 H 136/98 H Blood Pressure Location Lt brachial Lt brachial Position Sitting Sitting Pulse 72 Pulse Source Pulse Oximeter Pulse Oximetry (%) 96 Oxygen Delivery Method Room Air Intake Visit Reasons: 4 Month F/U [employer] Required: No Accompanied by: Self / Same As Patient Allergies duloxetine [Cymbalta] Allergy (Unknown, Verified 05/18/24 14:31) nausea , vomiting gabapentin Allergy (Unknown, Verified 05/18/24 14:31) dizziness, nausea shellfish derived Allergy (Unknown, Verified 05/18/24 14:31) Unknown Medication List - Last Reconciled 05/18/24 by Yash Zambrano MD atenolol 25 mg PO DAILY blood sugar diagnostic ([employer] Ultra Test strips) DIRECTED TO TEST BLOOD SUGAR DAILY clonazepam 1 mg PO BEDTIME PRN 30 days lancets ([employer] Plus Lancet) 30 gauge miscellaneous DAILY losartan 50 mg PO DAILY 90 days losartan 50 mg PO DAILY 90 days omeprazole 20 mg PO BID 90 days rosuvastatin 5 mg PO DAILY 90 days Tobacco use date assessed: 01/20/24 Dental Screening Dental Screen Date: 01/20/24 HPI 4 Month F/U HPI Details Patient comes in today for his follow up visit States that he feels okay Admits that he has been under a lot of stress lately as there are too many people living in his house right now - states that in addition to his elderly mother who he had to move in with him to help take care of her, his daughter and her kids and also moved in with them recently, supposedly temporarily while they are looking for a place of their own He denies any headaches or dizziness Denies any chest pains, no SOB No nausea/vomiting, no abdominal pain No change in bowel habits noted Needs a couple of his Rx refilled, including his Clonazepam He had his follow up labs done a couple of ago - to discuss his results [facility] Medical History (Updated 05/18/24 @ 15:03 by Yash Zambrano MD) Mixed hyperlipidemia Neuropathy Anxiety Obesity (BMI 30-39.9) Obstructive sleep apnea Elevated LFTs GERD without esophagitis Constipation Dyslipidemia Benign essential hypertension Diabetes mellitus Surgical History History of colonoscopy History of cholecystectomy (~12/19/17) Family History Father No problems noted. Mother Depression Myocardial infarction Brother In good health Brother In good health Daughter In good health Daughter In good health Daughter In good health Social History Housing: House Alcohol intake: current Alcohol intake frequency: holidays/special occasions only Patient Tobacco Use Status: Former Tobacco user e-Cigarette/Vaping Use: Never Used Second Hand Smoke Exposure: Yes service: No Current occupational status: disabled Cognitive needs: No Hearing needs: No Vision needs: No Questionnaire Thrive Questionnaire Date Thrive assessed: 01/20/24 SIRENA-7 AMB Questionnaire SIRENA-7 Date SIRENA - 7 assessed: 01/20/24 Source: Developed by Drs. Reji Ureña, Antionette Dickey, Ronald Ignacio and colleagues, with an educational shelby from [employer]. Review of Systems Const Denies chills, Denies fatigue, Denies fever(s) and Denies headache(s) ENT Denies dysphagia, Denies dizziness, Denies otalgia, Denies headache(s), Denies neck pain, Denies odynophagia and Denies sore throat Card Denies chest pain, Denies palpitations and Denies dyspnea Resp Denies cough, Denies dyspnea and Denies wheezing GI Denies abdominal pain, Denies constipation, Denies dysphagia, Denies heartburn, Denies diarrhea, Denies nausea, Denies odynophagia and Denies vomiting Denies dysuria, Denies nocturia and Denies urinary frequency Musc Reports back pain (on and off) and Denies neck pain Skin/Breast Denies rash Neuro Denies dizziness and Denies headache(s) Endo Denies fatigue and Denies palpitations Aller/Immun Denies wheezing Physical exam (Primary Care) Vital Signs: Last Vital Signs Pulse 72 05/18/24 13:39 BP 164/94 H 05/18/24 13:39 Pulse Ox 96 05/18/24 13:39 Oxygen Delivery Method Room Air 05/18/24 13:39 BMI result Body Mass Index 38.1 Tobacco/Smoking Status: Tobacco use Status Tobacco use date assessed 01/20/24 05/18/24 13:35 Patient Tobacco Use Status Former Tobacco user 05/18/24 13:35 e-Cigarette/Vaping Use Never Used 05/18/24 13:35 Thrive Assessment: Date of Thrive Assessment Date Thrive assessed 01/20/24 05/18/24 13:35 Const General: no acute distress and alert HENMT Ears: TM's normal bilaterally and EAC's normal Throat: Yes posterior oropharynx normal and Yes tonsils normal (no TP congestion) Neck Neck: Yes no lymphadenopathy and Yes supple Thyroid: Thyroid normal Resp Auscultation: clear to auscultation bilaterally, no rales and no wheezes Cardio Rate: regular rate Rhythm: regular rhythm Heart sounds: no murmurs GI Palpation (GI): Soft to palpation and nontender Auscultation: normal bowel sounds General: Yes no CVA tenderness Back/Spine/Pelvis Back: no CVA tenderness Thoracic/Lumbar Spine: lumbar spinal tenderness Skin Rashes: no rashes Extrem General: Yes no clubbing, cyanosis or edema Right lower extremity: knee Details: tenderness (mild) Results Reviewed Results Reviewed: Laboratory Tests 05/16/24 05/16/24 06:35 06:37 WBC 8.5 Hgb 15.7 Hct 46.8 Plt Count 244 Sodium 138 Potassium 4.6 D Creatinine 0.91 Estimated GFR > 60 Fasting Glucose 150 H Hemoglobin A1c % 6.6 H Calcium 10.2 D Total Bilirubin 1.9 H AST 50 H ALT 56 H Triglycerides 192 H Cholesterol 259 H LDL Cholesterol, Calc 177 H HDL Cholesterol 44 25-OH Vitamin D Total 43.9 TSH 2.37 Ur Specific [place] 1.025 Urine Protein Negative Urine Glucose (UA) Negative Urine Blood Negative Urine Nitrite Negative Ur Leukocyte Esterase Negative Assessment and Plan Assessment & Plan (1) Mixed hyperlipidemia: Code(s): E78.2 - Mixed hyperlipidemia Plan: Results of his labs done a couple of days ago reviewed and discussed with patient - advised that his total and LDL cholesterol levels have all increased significantly from previous He was on Rosuvastatin 5 mg QD in the past but he has decided to try controlling his cholesterol with diet, exercise and weight loss alone and stopped taking this earlier this year Reinforced low cholesterol diet - admits that he was eating a lot of pork and making them into shish kebabs over the past couple of months Have advised patient to start back on Rosuvastatin 5 mg QD at this time Will recheck his labs and fasting lipids in 4 months for follow up (2) Diabetes mellitus: Code(s): E11.9 - Type 2 diabetes mellitus without complications Qualifiers: Diabetes mellitus type: type 2 Diabetes mellitus moth exterminator insulin use: without moth exterminator use Diabetes mellitus complication status: without complication Qualified Code(s): E11.9 - Type 2 diabetes mellitus without complications Plan: His HgbA1c was at 6.6% on his labs done a couple of days ago (was previously at 6.2 % a few months ago) - goal is at least <7.0% Reinforced diabetic diet He was on Jardiance 25 mg Q AM but he stopped taking this a while back as his insurance would not cover the Rx He was also supposed to be on Metformin ER 500 mg QD but he admits that he has not been taking this for months now as he often gets an upset stomach whenever he takes Metformin so he is currently on NO MEDS for diabetes Have reminded patient that for him to be able to continue with diet modification and exercise alone with no Rx, he needs to be able to keep his HgbA1c lower than 6.0 to 6.2% If he is not able to get his HgbA1c back down over the next few months, will need to consider starting him again on some Rx for his diabetes and if he really does not want to go back on Metformin, can consider starting him on something else then (3) Benign essential hypertension: Code(s): I10 - Essential (primary) hypertension Plan: Reinforced low sodium diet - goal is systolic BP of 120 mm or less Continue Atenolol 25 mg QD and Losartan 50 mg QD He is reminded to continue monitoring his blood pressure regularly (4) GERD without esophagitis: Code(s): K21.9 - Gastro-esophageal reflux disease without esophagitis Plan: Dietary restrictions reinforced Continue Omeprazole 20 mg BID (5) Neuropathy: Code(s): G62.9 - Polyneuropathy, unspecified Plan: His previous legs symptoms appear to have improved lately He was started on Nortriptyline at bedtime previously to help with his symptoms but states that he has not taken this in a while now and has been doing okay without the med If symptoms progress, will consider sending him for EMG & NCV for further evaluation (6) Right knee pain: Code(s): M25.561 - Pain in right knee Qualifiers: Chronicity: unspecified Qualified Code(s): M25.561 - Pain in right knee Plan: Right knee x-rays done a few months ago revealed (+) superior patellar insertion enthesopathy Patient states that his right knee pain has been mostly manageable lately (7) Low back pain: Code(s): M54.50 - Low back pain, unspecified Qualifiers: Chronicity: unspecified Back pain laterality: right Sciatica presence: unspecified whether sciatica present Qualified Code(s): M54.50 - Low back pain, unspecified Plan: Reinforced activity and weight-lifting restrictions X-rays of the lumbar spine done in November 2022 revealed (+) mild lumbar spondylosis with mild bilateral SI joint arthritis Will consider referring to physical therapy if his back pain flares up or progresses (8) Constipation: Code(s): K59.00 - Constipation, unspecified Qualifiers: Constipation type: unspecified constipation type Qualified Code(s): K59.00 - Constipation, unspecified Plan: Improved - encouraged to continue with increased oral fluids and dietary fiber Used to take Amitiza 8 mcg BID and Miralax 17 gm QD in the past but states that he currently is only taking some OTC stool softeners daily (9) Elevated LFTs: Code(s): R79.89 - Other specified abnormal findings of blood chemistry Plan: His LFTs have again increased on his recent labs - is most likely related to his weight and cholesterol levels Will continue to monitor his LFTs regularly (10) Obstructive sleep apnea: Code(s): G47.33 - Obstructive sleep apnea (adult) (pediatric) Plan: States that he is no longer using his CPAP device when sleeping at night as his unit is very old and he has not seen Sleep Medicine in a while now Have offered to refer him back but he would like to hold off and continue to try losing weight for now to see if losing weight will be enough to help address his sleep apnea (11) Anxiety: Code(s): F41.9 - Anxiety disorder, unspecified Plan: Continue Clonazepam 1 mg Q HS PRN (12) Obesity (BMI 30-39.9): Code(s): E66.9 - Obesity, unspecified Plan: Reinforced diet/exercise as tolerated/lose weight Plan Follow up in 4 months Orders: Orders Complete Blood Count Auto Diff 4 Months D64.9 - Anemia, unspecified Lipid Panel 4 Months E78.00 - Pure hypercholesterolemia, unspecified Hemoglobin A1c 4 Months E11.9 - Type 2 diabetes mellitus without complications Comprehensive [place]. Panel Fast 4 Months E78.00 - Pure hypercholesterolemia, unspecified Medications: Refilled rosuvastatin 5 mg PO DAILY 90 days 90 tabs 1RF clonazepam administer 30 minutes before bedtime 1 mg PO BEDTIME 30 days PRN 30 tabs 0RF anxiety losartan 50 mg PO DAILY 90 days 90 tabs 1RF I10 - Essential (primary) hypertension atenolol 25 mg PO DAILY 90 tabs 3RF Coding Level of Care Code Est Pt Level 4 (19755) Complex EM visit Add On G2211 Diagnoses Mixed hyperlipidemia E78.2 Type 2 diabetes mellitus without complication, without long-term current use of insulin E11.9 Diabetes mellitus type: type 2 Diabetes mellitus moth exterminator insulin use: without moth exterminator use Diabetes mellitus complication status: without complication Benign essential hypertension I10 GERD without esophagitis K21.9 Neuropathy G62.9 Right knee pain, unspecified chronicity M25.561 Chronicity: unspecified Right low back pain, unspecified chronicity, unspecified whether sciatica present M54.50 Chronicity: unspecified Back pain laterality: right Sciatica presence: unspecified whether sciatica present Constipation, unspecified constipation type K59.00 Constipation type: unspecified constipation type Elevated LFTs R79.89 Obstructive sleep apnea G47.33 Anxiety F41.9 Obesity (BMI 30-39.9) E66.9
[2024-05-18 13:39] VITALS: BP 164/94; PULSE 72; O2SAT 96; BMI 38.1
[2024-05-18 14:02] VITALS: BP 136/98
== END 2024-05-18 14:10 | disposition home or self-care (01) ==
PROVIDERS: PCP Internal Medicine; Visit Provider Internal Medicine
DX: E78.2 Mixed hyperlipidemia (principal); E11.42 Type 2 diabetes mellitus with diabetic polyneuropathy; I10 Essential (primary) hypertension; K21.9 Gastro-esophageal reflux disease without esophagitis; M25.561 Pain in right knee; M54.50 Low back pain, unspecified; K59.00 Constipation, unspecified; R79.89 Other specified abnormal findings of blood chemistry; G47.33 Obstructive sleep apnea (adult) (pediatric); F41.9 Anxiety disorder, unspecified
CPT/HCPCS: 99214; G2211

== ENCOUNTER 2024-07-25 16:17 | Outpatient (AMB) | payer OTHER, SELFPAY ==
--- NOTE | 2024-07-25 16:19 | AM.OFFVISNUR ---
Intake Visit Reasons: flu shot Allergies duloxetine [Cymbalta] Allergy (Unknown, Verified 05/18/24 14:31) nausea , vomiting gabapentin Allergy (Unknown, Verified 05/18/24 14:31) dizziness, nausea shellfish derived Allergy (Unknown, Verified 05/18/24 14:31) Unknown Office Procedures Flu Questionnaire Does the patient have a severe egg allergy?: No Does the patient have severe life threatening allergies?: No Does the patient have a fever or illness today?: No Has the patient ever had Guillain-[place] Syndrome?: No Has the patient ever had any past reaction to a flu shot?: No Assessment & Plan Assessment & Plan Orders: Orders Influenza [id number] Immunization Today Z23 - Encounter for immunization Medications: New Fluarix Triv [id number] (PF) (flu vacc [id number] 6mos up(PF)) 0.5 mL IM ONCE 0.5 mL 0RF NS Z23 - Encounter for immunization
== END 2024-07-25 17:01 | disposition home or self-care (01) ==
LOC: HO.HMCH 16:17
PROVIDERS: PCP Internal Medicine; Visit Provider Internal Medicine
DX: Z23 Encounter for immunization (principal)

== ENCOUNTER → 2024-07-25 16:17 | Outpatient (BNVA) | payer OTHER, SELFPAY | PROVIDERS: PCP Internal Medicine; Visit Provider Internal Medicine | DX: Z23 Encounter for immunization (principal) | CPT/HCPCS: 90471; 90656 ==

== ENCOUNTER 2024-09-01 07:19 | Outpatient (REF) | payer OTHER, SELFPAY ==
[2024-09-01 08:05] LABS: MANUAL DIFF FLAG NO
[2024-09-01 09:36] LABS: Estimated Average Glucose 146 mg/dL; Hemoglobin A1C 177.7987 umol/L; Hemoglobin A1c % 6.7 % (<6.0); Total Hemoglobin (HGBA1C) 3588.6968 umol/L
[2024-09-01 09:51] LABS: Basophils Absolute Auto 0.1 X10*3/uL (0.0-0.2); Basophils Percent Auto 0.7 % (0-2); Eosinophils Absolute Auto 0.2 X10*3/uL (0.0-0.4); Eosinophils Percent Auto 1.8 % (0-4); Hematocrit 40.7 % (42.0-52.0); Hemoglobin 13.7 g/dl (14.0-18.0); Imm Gran Abs Auto 0.02 X10*3/uL (0.00-0.03); Imm Gran Pct Auto 0.2 % (0.0-0.4); Lymphocytes Absolute Auto 2.2 X10*3/uL (1.2-4.9); Lymphocytes Percent Auto 25.8 % (20-40); Mean Corpuscular HGB Conc 33.7 g/dl (31.0-36.0); Mean Corpuscular Hemoglobin 30.4 pg (27.0-33.0); Mean Corpuscular Volume 90.2 fL (80.0-98.0); Mean Platelet Volume 11.1 fL (9.4-12.4); Monocytes Absolute Auto 0.8 X10*3/uL (0.1-1.2); Monocytes Percent Auto 9.8 % (2-11); Neutrophils Absolute Auto 5.1 x10*3/uL (2.0-8.3); Neutrophils Percent Auto 61.7 % (45-73); Platelet Count 249 X10*3/uL (160-400); Red Blood Count 4.51 X10*6/uL (4.60-5.80); Red Cell Distribution Width 12.9 % (11.0-16.0); White Blood Count 8.3 X10*3/uL (4.8-10.8)
[2024-09-01 10:20] LABS: Alanine Aminotransferase 79 U/L (0-40); Albumin Level 4.3 g/dL (3.5-5.0); Alkaline Phosphatase 120 U/L (39-117); Anion Gap 15 (12-20); Aspartate Amino Transferase 47 U/L (5-37); Bilirubin Total 1.2 mg/dL (0.0-1.0); Blood Urea Nitrogen 18 mg/dL (9-16); Calcium 9.5 mg/dL (8.4-10.2); Carbon Dioxide 23 mmol/L (22-29); Chloride 108 mmol/L (96-108); Cholesterol 196 mg/dL (<200); Estimated Glomerular Filt Rate > 60; Glucose Fasting 143 mg/dL (60-99); HDL Cholesterol 42 mg/dL (>40); LDL Cholesterol Calculated 133 mg/dL (<100); Potassium 3.6 mmol/L (3.3-5.1); Sodium 142 mmol/L (135-145); Total Protein 7.4 g/dL (6.5-8.0); Triglycerides 108 mg/dL (<150)
== END 2024-09-01 07:20 | disposition home or self-care (01) ==
LOC: HO.LAB 07:19
PROVIDERS: PCP Internal Medicine; Visit Provider Internal Medicine
DX: D64.9 Anemia, unspecified (principal); E78.00 Pure hypercholesterolemia, unspecified; E11.9 Type 2 diabetes mellitus without complications
CPT/HCPCS: 36415; 80053; 80061; 83036; 85025

== ENCOUNTER 2024-09-18 14:04 | Outpatient (AMB) | payer OTHER, SELFPAY ==
[2024-09-18 14:08] VITALS: BP 138/86; PULSE 82; O2SAT 95; BMI 38.1
--- NOTE | 2024-09-18 14:08 | MHC.PC.OV ---
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 Accompanied by: Self / Same As Patient Allergies duloxetine [Cymbalta] Allergy (Unknown, Verified 09/18/24 14:38) nausea , vomiting gabapentin Allergy (Unknown, Verified 09/18/24 14:38) dizziness, nausea shellfish derived Allergy (Unknown, Verified 09/18/24 14:38) Unknown Medication List - Last Reconciled 09/18/24 by Yash Zambrano MD atenolol 25 mg PO DAILY blood sugar diagnostic ([employer] Ultra Test strips) DIRECTED TO TEST BLOOD SUGAR DAILY clonazepam 1 mg PO BEDTIME PRN 30 days lancets ([employer] Delica Plus Lancet) 30 gauge miscellaneous DAILY losartan 50 mg PO DAILY 90 days omeprazole 20 mg PO BID 90 days rosuvastatin 5 mg PO DAILY 90 days Tobacco use date assessed: 09/18/24 Dental Screening Dental Screen Date: 09/18/24 Did you have a dental visit in the last 12 months?: Yes Did you have a dental problem in the last 6 months where you did not have access to dental care?: No Was dental information given to patient?: Patient has dentist HPI [facility] f/u HPI Details Patient comes in today for his follow up visit States that he feels okay He denies any headaches or dizziness Denies any chest pains, no SOB No nausea/vomiting, no abdominal pain No change in bowel habits noted He had his follow up labs done a couple of weeks ago - to discuss his results COUNTS INCLUDE 234 BEDS AT THE [facility] Medical History (Updated 09/18/24 @ 14:47 by Yash Zambrano MD) Arthritis of sacroiliac joint Lumbar spondylosis Mixed hyperlipidemia Neuropathy Anxiety Obesity (BMI 30-39.9) Obstructive sleep apnea Elevated LFTs GERD without esophagitis Constipation Dyslipidemia Benign essential hypertension Diabetes mellitus Surgical History History of colonoscopy History of cholecystectomy (~12/19/17) Family History Father No problems noted. Mother Depression Myocardial infarction Brother In good health Brother In good health Daughter In good health Daughter In good health Daughter In good health Social History Housing: House Alcohol intake: current Alcohol intake frequency: holidays/special occasions only Patient Tobacco Use Status: Former Tobacco user e-Cigarette/Vaping Use: Never Used Second Hand Smoke Exposure: Yes service: No Current occupational status: disabled Cognitive needs: No Hearing needs: No Vision needs: No Questionnaire PHQ-9 Over the last 2 weeks, how often have you been bothered by any of the following problems? 1. Little interest or pleasure in doing things: not at all 2. Feeling down, depressed, or hopeless: not at all 3. Trouble falling or staying asleep, or sleeping too much: not at all 4. Feeling tired or having little energy: not at all 5. Poor appetite or overeating: not at all 6. Feeling bad about yourself - or that you are a failure or have let yourself or your family down: not at all 7. Trouble concentrating on things, such as reading the newspaper or watching television: not at all 8. Moving or speaking so slowly that other people could have noticed. Or the opposite - being so fidgety or restless that you have been moving around a lot more than usual: not at all 9. Thoughts that you would be better off or of hurting yourself in some way: not at all Total score: 0 Depression Screening Interpretation: Negative Depression Screening Done: Yes 80767 - PHQ-9 Billing: Yes Source: Developed by Drs. Reji Ureña, Antionette Dickey, Ronald Ignacio and colleagues, with an educational shelby from [employer]. Thrive Questionnaire Date Thrive assessed: 09/18/24 I am a: Patient What is your living situation today?: I have a steady place to live Within the past 12 months, did the food you bought not last and you didn't have the money to get more?: Never true Within the past 12 months, did you worry whether your food would run out before you got money to buy more?: Never true Do you have trouble paying for medicines?: No Do you have trouble getting transportation to medical appointments?: No Do you have trouble paying your heating and electricity bill?: No Do you have trouble taking care of your child, family member or friend?: No Do you have trouble with day-to-day activities such as bathing, preparing meals, shopping, managing finances, etc.?: No Are you currently unemployed and looking for a job?: No Are you interested in more education?: No Please select the resources that you would like help with: None Currently or been in a relationship where the following occur: No concerns reported THRIVE Score: 0 AUDIT C Alcohol Use Questionnaire (AUDIT-C) 1. How often do you have a drink containing alcohol?: Monthly or less 2. How many drinks containing alcohol do you have on a typical day when you are drinking?: 1 or 2 Total Score: 1 Score Reviewed/Action Taken: Yes SIRENA-7 AMB Questionnaire SIRENA-7 Date SIRENA - 7 assessed: 09/18/24 Feeling nervous, anxious, or on edge: 0 = Not at all Not being able to stop or control worryin = Not at all Worrying too much about different things: 0 = Not at all Trouble relaxin = Not at all Being so restless that it is hard to sit still: 0 = Not at all Becoming easily annoyed or irritable: 0 = Not at all Feeling afraid as if something awful might happen: 0 = Not at all Total SIRENA-7 score (0-4 normal; 5-9 mild; 10-14 moderate; 15-21 severe): 0 Source: Developed by Drs. Reji Ureña, Antionette Dickey, Ronald Ignacio and colleagues, with an educational shelby from [employer]. Review of Systems Const Denies chills, Denies fatigue, Denies fever(s) and Denies headache(s) ENT Denies dysphagia, Denies dizziness, Denies otalgia, Denies headache(s), Denies neck pain, Denies odynophagia and Denies sore throat Card Denies chest pain, Denies palpitations and Denies dyspnea Resp Denies cough, Denies dyspnea and Denies wheezing GI Denies abdominal pain, Denies constipation, Denies dysphagia, Denies heartburn, Denies diarrhea, Denies nausea, Denies odynophagia and Denies vomiting Denies dysuria, Denies nocturia and Denies urinary frequency Musc Reports back pain (on and off) and Denies neck pain Skin/Breast Denies rash Neuro Denies dizziness and Denies headache(s) Endo Denies fatigue and Denies palpitations Aller/Immun Denies wheezing Physical exam (Primary Care) Vital Signs: Last Vital Signs Pulse 82 09/18/24 14:08 BP 138/86 09/18/24 14:08 Pulse Ox 95 09/18/24 14:08 Oxygen Delivery Method Room Air 09/18/24 14:08 BMI result Body Mass Index 38.1 Tobacco/Smoking Status: Tobacco use Status Tobacco use date assessed 09/18/24 09/18/24 14:11 Patient Tobacco Use Status Former Tobacco user 09/18/24 14:11 e-Cigarette/Vaping Use Never Used 09/18/24 14:11 PHQ-9: PHQ-9 Score PHQ-9: Total score 0 09/18/24 14:43 Depression Screening Interpretation: Negative Thrive Assessment: Date of Thrive Assessment Date Thrive assessed 09/18/24 09/18/24 14:11 Currently or been in a relationship where the following occur: No concerns reported Const General: no acute distress and alert HENMT Ears: TM's normal bilaterally and EAC's normal Throat: Yes posterior oropharynx normal and Yes tonsils normal (no TP congestion) Neck Neck: Yes no lymphadenopathy and Yes supple Thyroid: Thyroid normal Resp Auscultation: clear to auscultation bilaterally, no rales and no wheezes Cardio Rate: regular rate Rhythm: regular rhythm Heart sounds: no murmurs GI Palpation (GI): Soft to palpation and nontender Auscultation: normal bowel sounds General: Yes no CVA tenderness Back/Spine/Pelvis Back: no CVA tenderness Thoracic/Lumbar Spine: lumbar spinal tenderness Skin Rashes: no rashes Extrem General: Yes no clubbing, cyanosis or edema Right lower extremity: knee Details: tenderness (mild) Results Reviewed Results Reviewed: Laboratory Tests 09/01/24 07:59 WBC 8.3 Hgb 13.7 L Hct 40.7 L Plt Count 249 Sodium 142 Potassium 3.6 D Creatinine 0.84 Estimated GFR > 60 Fasting Glucose 143 H Hemoglobin A1c % 6.7 H Calcium 9.5 D Total Bilirubin 1.2 H AST 47 H ALT 79 H Triglycerides 108 Cholesterol 196 LDL Cholesterol, Calc 133 H HDL Cholesterol 42 Coding Level of Care Code Est Pt Level 4 (67687) Complex EM visit Add On G2211 Diagnoses Mixed hyperlipidemia E78.2 Type 2 diabetes mellitus without complication, without long-term current use of insulin E11.9 Diabetes mellitus complication status: without complication Diabetes mellitus skilled nursing insulin use: without terminal carman use Diabetes mellitus type: type 2 Benign essential hypertension I10 GERD without esophagitis K21.9 Neuropathy G62.9 Patellar tendinitis of right knee M76.51 Lumbar spondylosis M47.816 Arthritis of sacroiliac joint M46.1 Constipation, unspecified constipation type K59.00 Constipation type: unspecified constipation type Elevated LFTs R79.89 Obstructive sleep apnea G47.33 Anxiety F41.9 Obesity (BMI 30-39.9) E66.9 Additional Codes PHQ-9 - 68107 - PHQ-9 Billing: Yes ([id number]) Assessment & Plan Assessment & Plan (1) Mixed hyperlipidemia: Code(s): E78.2 - Mixed hyperlipidemia Category: Medical Plan: Results of his labs done a couple of weeks ago reviewed and discussed with patient Reinforced low cholesterol diet Continue Rosuvastatin 5 mg QD Will recheck his labs and fasting lipids in 4 months for follow up (2) Diabetes mellitus: Code(s): E11.9 - Type 2 diabetes mellitus without complications Category: Medical Qualifiers: Diabetes mellitus complication status: without complication Diabetes mellitus skilled nursing insulin use: without skilled nursing use Diabetes mellitus type: type 2 Qualified Code(s): E11.9 - Type 2 diabetes mellitus without complications Plan: His HgbA1c was at 6.7% on his labs done a couple of weeks ago (was previously at 6.6% a few months ago) - goal is at least <7.0% but ideally <6.5% Reinforced diabetic diet He would like to continue with diet modification and exercise alone with no Rx He is reminded that he needs to be able to keep his HgbA1c lower than 6.0 to 6.2% to be able to allow him to continue doing so He was on Jardiance 25 mg Q AM previously but he stopped taking this a while back as his insurance would not cover the Rx He was also supposed to be on Metformin ER 500 mg QD but he admitted to not taking this for months as he often gets an upset stomach whenever he takes Metformin (3) Benign essential hypertension: Code(s): I10 - Essential (primary) hypertension Category: Medical Plan: Reinforced low sodium diet - goal is systolic BP of 120 mm or less Continue Atenolol 25 mg QD and Losartan 50 mg QD He is reminded to continue monitoring his blood pressure regularly (4) GERD without esophagitis: Code(s): K21.9 - Gastro-esophageal reflux disease without esophagitis Category: Medical Plan: Dietary restrictions reinforced Continue Omeprazole 20 mg BID (5) Neuropathy: Code(s): G62.9 - Polyneuropathy, unspecified Category: Medical Plan: His previous legs symptoms appear to have improved lately He was started on Nortriptyline at bedtime previously to help with his symptoms but states that he has not taken this in a while now and has been doing okay without the med If symptoms progress, will consider sending him for EMG & NCV for further evaluation (6) Patellar tendinitis of right knee: Code(s): M76.51 - Patellar tendinitis, right knee Category: Medical Plan: Right knee x-rays done a few months ago revealed (+) superior patellar insertion enthesopathy Patient states that his right knee pain has been mostly manageable lately (7) Lumbar spondylosis: Code(s): M47.816 - Spondylosis without myelopathy or radiculopathy, lumbar region Category: Medical Plan: Reinforced activity and weight-lifting restrictions X-rays of the lumbar spine done in November 2022 revealed (+) mild lumbar spondylosis with mild bilateral SI joint arthritis Will consider referring to physical therapy if his back pain flares up or progresses (8) Arthritis of sacroiliac joint: Code(s): M46.1 - Sacroiliitis, not elsewhere classified Category: Medical Plan: X-rays of the lumbar spine done in November 2022 revealed (+) mild lumbar spondylosis along with mild bilateral SI joint arthritis Will consider referral to pain management if his low back pain increases (9) Constipation: Code(s): K59.00 - Constipation, unspecified Category: Medical Qualifiers: Constipation type: unspecified constipation type Qualified Code(s): K59.00 - Constipation, unspecified Plan: Improved - encouraged to continue with increased oral fluids and dietary fiber He used to take Amitiza 8 mcg BID and Miralax 17 gm QD in the past but states that he currently is only taking some OTC stool softeners daily (10) Elevated LFTs: Code(s): R79.89 - Other specified abnormal findings of blood chemistry Category: Medical Plan: His LFTs have again increased on his recent labs - is most likely related to his weight and cholesterol levels Will continue to monitor his LFTs regularly (11) Obstructive sleep apnea: Code(s): G47.33 - Obstructive sleep apnea (adult) (pediatric) Category: Medical Plan: States that he is no longer using his CPAP device when sleeping at night as his unit is very old and he has not seen Sleep Medicine in a while now Have offered to refer him back but he would like to hold off and continue to try losing weight for now to see if losing weight will be enough to help address his sleep apnea (12) Anxiety: Code(s): F41.9 - Anxiety disorder, unspecified Category: Medical Plan: Continue Clonazepam 1 mg Q HS PRN (13) Obesity (BMI 30-39.9): Code(s): E66.9 - Obesity, unspecified Category: Medical Plan: Reinforced diet/exercise as tolerated/lose weight Plan Follow up in 4 months Orders: Orders Complete Blood Count Auto Diff 4 Months D64.9 - Anemia, unspecified Microalbumin, Random (w Creat) 4 Months E11.9 - Type 2 diabetes mellitus without complications Hemoglobin A1c 4 Months E11.9 - Type 2 diabetes mellitus without complications Vitamin D 25-OH Total 4 Months E55.9 - Vitamin D deficiency, unspecified [facility]. Panel Fast 4 Months E78.00 - Pure hypercholesterolemia, unspecified Lipid Panel 4 Months E78.00 - Pure hypercholesterolemia, unspecified UA CC w/rflx Micro + Cult 4 Months R30.0 - Dysuria
== END 2024-09-18 14:57 | disposition home or self-care (01) ==
PROVIDERS: PCP Internal Medicine; Visit Provider Internal Medicine
DX: E78.2 Mixed hyperlipidemia (principal); E11.9 Type 2 diabetes mellitus without complications; M46.1 Sacroiliitis, not elsewhere classified; I10 Essential (primary) hypertension; K21.9 Gastro-esophageal reflux disease without esophagitis; G62.9 Polyneuropathy, unspecified; M76.51 Patellar tendinitis, right knee; M47.816 Spondylosis without myelopathy or radiculopathy, lumbar region; K59.00 Constipation, unspecified; G47.33 Obstructive sleep apnea (adult) (pediatric); F41.9 Anxiety disorder, unspecified

== ENCOUNTER → 2024-09-18 14:04 | Outpatient (BNVA) | payer OTHER, SELFPAY | PROVIDERS: PCP Internal Medicine; Visit Provider Internal Medicine | DX: E78.2 Mixed hyperlipidemia (principal); E11.9 Type 2 diabetes mellitus without complications; I10 Essential (primary) hypertension; K21.9 Gastro-esophageal reflux disease without esophagitis; G62.9 Polyneuropathy, unspecified; M76.51 Patellar tendinitis, right knee; M47.816 Spondylosis without myelopathy or radiculopathy, lumbar region; M46.1 Sacroiliitis, not elsewhere classified; K59.00 Constipation, unspecified; R79.89 Other specified abnormal findings of blood chemistry; G47.33 Obstructive sleep apnea (adult) (pediatric); F41.9 Anxiety disorder, unspecified; E66.9 Obesity, unspecified | CPT/HCPCS: 96127; 99212 ==

== ENCOUNTER 2024-10-15 16:36 | Outpatient (AMB) | payer OTHER, SELFPAY ==
[2024-10-15 16:37] VITALS: BP 138/86; PULSE 82; O2SAT 98; BMI 37.5
--- NOTE | 2024-10-15 16:37 | A.OFFPC_ITS ---
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 Accompanied by: Self / Same As Patient Allergies duloxetine [Cymbalta] Allergy (Unknown, Verified 10/15/24 16:54) nausea , vomiting gabapentin Allergy (Unknown, Verified 10/15/24 16:54) dizziness, nausea shellfish derived Allergy (Unknown, Verified 10/15/24 16:54) Unknown Medication List - Last Reconciled 10/15/24 by Yash Zambrano MD atenolol 25 mg PO DAILY blood sugar diagnostic ([employer] Ultra Test strips) DIRECTED TO TEST BLOOD SUGAR DAILY clonazepam 1 mg PO BEDTIME PRN 30 days lancets ([employer] Delica Plus Lancet) 30 gauge miscellaneous DAILY losartan 50 mg PO DAILY 90 days omeprazole 20 mg PO BID 90 days rosuvastatin 5 mg PO DAILY 90 days Tobacco use date assessed: 10/15/24 Dental Screening Dental Screen Date: 10/15/24 Did you have a dental visit in the last 12 months?: Yes Did you have a dental problem in the last 6 months where you did not have access to dental care?: No Was dental information given to patient?: Patient has dentist HPI Painful inner ear HPI Details Patient comes in today complaining of increased pressure and discomfort in his right ear for the past couple of days States that he has also been experiencing recurrent dizziness for the past couple of days Recalls that his symptoms started after he tried inserting a Q-tip into his right ear a couple of days ago as he felt like there was something moving inside his right ear at the time States that he did not get anything out of his right ear with the Q-tip and that he woke up the next morning with increased dizziness and right ear pressure which have persisted since He denies any fever or sore throat lately Denies any headaches Denies any chest pains, no shortness of breath No nausea/vomiting, no abdominal pain No change in bowel habits noted Adds that he also needs his Clonazepam Rx refilled PFSH Medical History Arthritis of sacroiliac joint Lumbar spondylosis Mixed hyperlipidemia Neuropathy Anxiety Obesity (BMI 30-39.9) Obstructive sleep apnea Elevated LFTs GERD without esophagitis Constipation Dyslipidemia Benign essential hypertension Diabetes mellitus Surgical History History of colonoscopy History of cholecystectomy (~12/19/17) Family History Father No problems noted. Mother Depression Myocardial infarction Brother In good health Brother In good health Daughter In good health Daughter In good health Daughter In good health Social History Housing: House Alcohol intake: current Alcohol intake frequency: holidays/special occasions only Patient Tobacco Use Status: Former Tobacco user e-Cigarette/Vaping Use: Never Used Second Hand Smoke Exposure: Yes service: No Current occupational status: disabled Cognitive needs: No Hearing needs: No Vision needs: No Questionnaire PHQ-9 Over the last 2 weeks, how often have you been bothered by any of the following problems? 1. Little interest or pleasure in doing things: not at all 2. Feeling down, depressed, or hopeless: not at all 3. Trouble falling or staying asleep, or sleeping too much: not at all 4. Feeling tired or having little energy: not at all 5. Poor appetite or overeating: not at all 6. Feeling bad about yourself - or that you are a failure or have let yourself or your family down: not at all 7. Trouble concentrating on things, such as reading the newspaper or watching television: not at all 8. Moving or speaking so slowly that other people could have noticed. Or the opposite - being so fidgety or restless that you have been moving around a lot more than usual: not at all 9. Thoughts that you would be better off or of hurting yourself in some way: not at all Total score: 0 Depression Screening Interpretation: Negative Depression Screening Done: Yes 08973 - PHQ-9 Billing: Yes Source: Developed by Drs. Reji Ureña, Antionette Dickey, Ronald Ignacio and colleagues, with an educational shelby from [employer]. Thrive Questionnaire Date Thrive assessed: 10/15/24 I am a: Patient What is your living situation today?: I have a steady place to live Within the past 12 months, did the food you bought not last and you didn't have the money to get more?: Never true Within the past 12 months, did you worry whether your food would run out before you got money to buy more?: Never true Do you have trouble paying for medicines?: No Do you have trouble getting transportation to medical appointments?: No Do you have trouble paying your heating and electricity bill?: No Do you have trouble taking care of your child, family member or friend?: No Do you have trouble with day-to-day activities such as bathing, preparing meals, shopping, managing finances, etc.?: No Are you currently unemployed and looking for a job?: No Are you interested in more education?: No Please select the resources that you would like help with: None Currently or been in a relationship where the following occur: No concerns reported THRIVE Score: 0 AUDIT C Alcohol Use Questionnaire (AUDIT-C) 1. How often do you have a drink containing alcohol?: Monthly or less 2. How many drinks containing alcohol do you have on a typical day when you are drinking?: 3 or 4 3. How often do you have six or more drinks on one occasion?: Less than monthly Total Score: 3 Score Reviewed/Action Taken: Yes SIRENA-7 AMB Questionnaire SIRENA-7 Date SIRENA - 7 assessed: 10/15/24 Feeling nervous, anxious, or on edge: 0 = Not at all Not being able to stop or control worryin = Not at all Worrying too much about different things: 0 = Not at all Trouble relaxin = Not at all Being so restless that it is hard to sit still: 0 = Not at all Becoming easily annoyed or irritable: 0 = Not at all Feeling afraid as if something awful might happen: 0 = Not at all Total SIRENA-7 score (0-4 normal; 5-9 mild; 10-14 moderate; 15-21 severe): 0 Source: Developed by Drs. Reji Ureña, Antionette Dickey, Ronald Ignacio and colleagues, with an educational shelby from [employer]. Review of Systems Const Denies fatigue, Denies fever(s) and Denies headache(s) ENT Denies dysphagia, Reports dizziness (recurrent), Reports otalgia (more of a right ear pressure/discomfort, with slight pain at times), Denies headache(s), Denies neck pain, Denies odynophagia and Denies sore throat Card Denies chest pain, Denies palpitations and Denies dyspnea Resp Denies cough, Denies dyspnea and Denies wheezing GI Denies abdominal pain, Denies constipation, Denies dysphagia, Denies heartburn, Denies diarrhea, Denies nausea, Denies odynophagia and Denies vomiting Musc Reports back pain (on and off) and Denies neck pain Skin/Breast Denies rash Neuro Reports dizziness (recurrent) and Denies headache(s) Endo Denies fatigue and Denies palpitations Aller/Immun Denies wheezing Physical exam (Primary Care) Vital Signs: Last Vital Signs Pulse 82 10/15/24 16:37 BP 138/86 10/15/24 16:37 Pulse Ox 98 10/15/24 16:37 Oxygen Delivery Method Room Air 10/15/24 16:37 BMI result Body Mass Index 37.5 Tobacco/Smoking Status: Tobacco use Status Tobacco use date assessed 10/15/24 10/15/24 16:44 Patient Tobacco Use Status Former Tobacco user 10/15/24 16:44 e-Cigarette/Vaping Use Never Used 10/15/24 16:44 PHQ-9: PHQ-9 Score PHQ-9: Total score 0 10/15/24 16:55 Depression Screening Interpretation: Negative Thrive Assessment: Date of Thrive Assessment Date Thrive assessed 10/15/24 10/15/24 16:44 Currently or been in a relationship where the following occur: No concerns reported Const General: no acute distress and alert HENMT Ears: TM normal on the left, EAC's normal and TM abnormal with fluid behind the TM on the right Throat: Yes posterior oropharynx normal and Yes tonsils normal (no TP congestion) Neck Neck: Yes no lymphadenopathy and Yes supple Resp Auscultation: clear to auscultation bilaterally, no rales and no wheezes Cardio Rate: regular rate Rhythm: regular rhythm Heart sounds: no murmurs GI Palpation (GI): Soft to palpation and nontender Auscultation: normal bowel sounds Extrem General: Yes no clubbing, cyanosis or edema Right lower extremity: knee Details: tenderness (mild) Coding Level of Care Code Est Pt Level 3 (41110) Diagnoses Right otitis media, unspecified otitis media type H66.91 Otitis media type: unspecified Anxiety F41.9 Additional Codes PHQ-9 - 64562 - PHQ-9 Billing: Yes ([id number]) Assessment & Plan Assessment & Plan (1) Otitis media of right ear: Code(s): H66.91 - Otitis media, unspecified, right ear Category: Medical Qualifiers: Otitis media type: unspecified Qualified Code(s): H66.91 - Otitis media, unspecified, right ear Plan: Will start patient on Ofloxacin 0.3% ear drops to apply up to 10 drops into the right ear BID x 7 days Patient is advised to call if his ear symptoms progress or get worse over the next few days despite antibiotic eardrops treatment (2) Anxiety: Code(s): F41.9 - Anxiety disorder, unspecified Category: Medical Plan: Continue Clonazepam 1 mg Q HS PRN - Rx refilled Plan Follow up as scheduled in December 2024 Medications: New ofloxacin 0.3% 10 drps otic (ear) right BID 5 mL 0RF 7 days Refilled clonazepam administer 30 minutes before bedtime 1 mg PO BEDTIME PRN 30 tabs 0RF anxiety 30 days
== END 2024-10-15 17:59 | disposition home or self-care (01) ==
PROVIDERS: PCP Internal Medicine; Visit Provider Internal Medicine
DX: H66.91 Otitis media, unspecified, right ear (principal); F41.9 Anxiety disorder, unspecified

== ENCOUNTER → 2024-10-15 16:36 | Outpatient (BNVA) | payer OTHER, SELFPAY | PROVIDERS: PCP Internal Medicine; Visit Provider Internal Medicine | DX: H66.91 Otitis media, unspecified, right ear (principal); F41.9 Anxiety disorder, unspecified | CPT/HCPCS: 96127; 99212 ==

== ENCOUNTER 2025-04-10 11:01 | Outpatient (AMB) | payer MEDICARE, SELFPAY ==
[2025-04-10 11:07] VITALS: BP 126/90; PULSE 75; TEMP 36.9; O2SAT 98; BMI 35.8
--- NOTE | 2025-04-10 11:07 | MHC.OFFWIV ---
Intake Vital Signs 04/10/25 11:07 Height 5 ft 11 in Weight 257 lb BMI 35.8 BP 126/90 H Blood Pressure Location Lt brachial Position Sitting Pulse 75 Pulse Source Pulse Oximeter Temp 98.5 F Temp Source Oral Pulse Oximetry (%) 98 Oxygen Delivery Method Room Air Intake Visit Reasons: EP bump on back, painful Intake Note: Pt presents to the office today for c/o a bump on his back x2 months. Patient Tobacco Use Status: Former Tobacco user Allergies duloxetine (Cymbalta) Allergy (Unknown, Verified 04/10/25 11:07) nausea , vomiting gabapentin Allergy (Unknown, Verified 04/10/25 11:07) dizziness, nausea shellfish derived Allergy (Unknown, Verified 04/10/25 11:07) Unknown Medication List - Last Reconciled 04/10/25 by Franki Shine MD atenolol 25 mg PO DAILY blood sugar diagnostic ([employer] Ultra Test strips) DIRECTED TO TEST BLOOD SUGAR DAILY clonazepam 1 mg PO BEDTIME PRN 30 days lancets ([employer] Delica Plus Lancet) 30 gauge miscellaneous DAILY losartan 50 mg PO DAILY 90 days omeprazole 20 mg PO BID 90 days rosuvastatin 5 mg PO DAILY 90 days HPI EP bump on back, painful HPI Details History - The patient is a 59-year-old male presenting with a large, infected cyst located on the back. - The cyst began approximately two months ago and has progressively enlarged. - Approximately two weeks into its onset, the patient observed that the cyst was worsening. - The size is now approximately that of a ping pong ball and has become more problematic over the past week. - The patient noted there was an absence of drainage and applied antibiotics at home with his ?s assistance. - The patient initially attempted treatment with Amoxicillin, but did not find it effective. Medications: - Amoxicillin for infection (note: patient indicated this was ineffective and very mild). Problem List - Infected cutaneous cyst Patient Instructions - Take prescribed stronger antibiotic as directed. - Prepare for a surgical drainage procedure at discretion of surgeon - Proceed with an appointment arranged with the surgeon for further management. - Monitor the cyst; seek immediate care if symptoms worsen or do not resolve. - take doxycycline that will be sent to your pharmacy Review of Systems - General: No fever no chills - Neurological: No headaches no dizziness - Ear nose throat: No sore throat no hearing difficulty no ear pain - Cardiovascular: No syncope, no chest pain, no palpitations - Gastrointestinal: No nausea vomiting or diarrhea Physical Exam General: No acute distress HEENT: No acute findings Neck: Supple Respiratory system: Able to talk in full sentences, no audible wheeze Gastrointestinal: No pain Back : upper back with large infected cyst size of ping pong ball, no drainage at this time Extremities: Large cyst in the back, infected, no drainage noticed, needs to be lanced through surgery PRODUCTION ADMINISTRATIVE ASSISTANT: Alert awake oriented x3 motor sensory intact Skin: Normal turgor [facility] Medical History Arthritis of sacroiliac joint Lumbar spondylosis Mixed hyperlipidemia Neuropathy Anxiety Obesity (BMI 30-39.9) Obstructive sleep apnea Elevated LFTs GERD without esophagitis Constipation Dyslipidemia Benign essential hypertension Diabetes mellitus Surgical History History of colonoscopy History of cholecystectomy (~12/19/17) Family History Father No problems noted. Mother Depression Myocardial infarction Brother In good health Brother In good health Daughter In good health Daughter In good health Daughter In good health Social History Housing: House Alcohol intake: current Alcohol intake frequency: holidays/special occasions only Patient Tobacco Use Status: Former Tobacco user e-Cigarette/Vaping Use: Never Used Second Hand Smoke Exposure: Yes service: No Current occupational status: disabled Cognitive needs: No Hearing needs: No Vision needs: No Physical Exam Vital Signs: Last Vital Signs Temp 98.5 F 04/10/25 11:07 Pulse 75 04/10/25 11:07 BP 126/90 H 04/10/25 11:07 Pulse Ox 98 04/10/25 11:07 Oxygen Delivery Method Room Air 04/10/25 11:07 BMI result Body Mass Index 35.8 Assessment & Plan Assessment & Plan (1) Abscess of back: Code(s): L02.212 - Cutaneous abscess of back [any part, except buttock] Plan History - The patient is a 59-year-old male presenting with a large, infected cyst located on the back. - The cyst began approximately two months ago and has progressively enlarged. - Approximately two weeks into its onset, the patient observed that the cyst was worsening. - The size is now approximately that of a ping pong ball and has become more problematic over the past week. - The patient noted there was an absence of drainage and applied antibiotics at home with his ?s assistance. - The patient initially attempted treatment with Amoxicillin, but did not find it effective. Medications: - Amoxicillin for infection (note: patient indicated this was ineffective and very mild). Problem List - Infected cutaneous cyst Patient Instructions - Take prescribed stronger antibiotic as directed. - Prepare for a surgical drainage procedure at discretion of surgeon - Proceed with an appointment arranged with the surgeon for further management. - Monitor the cyst; seek immediate care if symptoms worsen or do not resolve. - take doxycycline that will be sent to your pharmacy Orders: Referrals General Surgery Referral L02.212 - Cutaneous abscess of back [any part, except buttock] Medications: New doxycycline hyclate 100 mg PO BID 20 caps 0RF 10 days Coding Level of Care Code Est Pt Level 3 (48078) Diagnoses Abscess of back L02.212
== END 2025-04-10 11:27 | disposition home or self-care (01) ==
PROVIDERS: PCP Internal Medicine; Visit Provider Internal Medicine
DX: L02.212 Cutaneous abscess of back [any part, except buttock and flank] (principal)

== ENCOUNTER → 2025-04-10 11:01 | Outpatient (BNVA) | payer MEDICARE, SELFPAY | PROVIDERS: PCP Internal Medicine; Visit Provider Internal Medicine | DX: L02.212 Cutaneous abscess of back [any part, except buttock and flank] (principal) | CPT/HCPCS: 99212 ==

== ENCOUNTER 2025-04-15 13:24 | Outpatient (AMB) | payer MEDICARE, SELFPAY ==
--- NOTE | 2025-04-15 13:31 | MHC.OFFVIS ---
Vital Signs 04/15/25 13:37 Height 5 ft 11 in Weight 258 lb BMI 36.0 BP 148/95 H Blood Pressure Location Rt brachial Position Sitting Pulse 73 Intake Visit Reasons: Cutaneous abscess of back Intake Note: Patient referred by Dr. Rl Doan for cyst on back. Doxycycline course almost complete. Patient c/o: cyst improving. Keeps it covered w/band-aid. Keel Press Operator Required: No Accompanied by: Self / Same As Patient Allergies duloxetine (Cymbalta) Allergy (Unknown, Verified 04/15/25 13:36) nausea , vomiting gabapentin Allergy (Unknown, Verified 04/15/25 13:36) dizziness, nausea shellfish derived Allergy (Unknown, Verified 04/15/25 13:36) Unknown Medication List - Last Reconciled 04/15/25 by Fidencio Umaña MD atenolol 25 mg PO DAILY blood sugar diagnostic ([employer] Ultra Test strips) DIRECTED TO TEST BLOOD SUGAR DAILY clonazepam 1 mg PO BEDTIME PRN 30 days doxycycline hyclate 100 mg PO BID 10 days lancets ([employer] Delica Plus Lancet) 30 gauge miscellaneous DAILY losartan 50 mg PO DAILY 90 days omeprazole 20 mg PO BID 90 days rosuvastatin 5 mg PO DAILY 90 days HPI HPI Cutaneous abscess of back: Details: 59-year-old male referred for a cyst on his back. He said he has had a lump on his back for about 2 months. He thought that this started as a small pimple like lesion but has increased in size. He describes swelling, pain and tenderness. [facility] Medical History (Updated 04/15/25 @ 13:48 by Fidencio Umaña MD) Epidermal cyst Arthritis of sacroiliac joint Lumbar spondylosis Mixed hyperlipidemia Neuropathy Anxiety Obesity (BMI 30-39.9) Obstructive sleep apnea Elevated LFTs GERD without esophagitis Constipation Dyslipidemia Benign essential hypertension Diabetes mellitus Surgical History History of colonoscopy History of cholecystectomy (~12/19/17) Family History Father No problems noted. Mother Depression Myocardial infarction Brother In good health Brother In good health Daughter In good health Daughter In good health Daughter In good health Social History Housing: House Alcohol intake: current Alcohol intake frequency: holidays/special occasions only Patient Tobacco Use Status: Former Tobacco user e-Cigarette/Vaping Use: Never Used Second Hand Smoke Exposure: Yes service: No Current occupational status: disabled Cognitive needs: No Hearing needs: No Vision needs: No Review of Systems Const Denies chills and Denies fever(s) Card Denies chest pain, Denies dyspnea and Denies dyspnea on exertion Resp Denies cough, Denies dyspnea and Denies dyspnea on exertion GI Denies hematochezia and Denies change in bowel habits Denies hematuria and Denies difficulty urinating Musc Denies back pain and Denies limited range of motion Neuro Denies focal weakness and Denies convulsions Psych Denies depression and Denies mood swings Physical Exam Vital Signs: Last Vital Signs Pulse 73 04/15/25 13:37 BP 148/95 H 04/15/25 13:37 BMI result Body Mass Index 36.0 Const General: comfortable and no acute distress Orientation/consciousness: patient oriented x3 Neck Neck: Yes no lymphadenopathy Resp Auscultation: clear to auscultation bilaterally Cardio Rhythm: regular rhythm GI Palpation (GI): Soft to palpation, nontender and no guarding Back/Spine/Pelvis Other: Cystic induration on the upper back, about 3 cm in diameter, consistent with an epidermal cyst Neuro General: patient oriented x3 Assessment & Plan Assessment & Plan (1) Epidermal cyst: Code(s): L72.0 - Epidermal cyst Category: Medical Plan: He wants to proceed with the excision. I explained the technique of excision under local anesthesia. I reviewed the risks including but not limited to bleeding and infections, as well as the benefits and alternatives. He understands and wants to proceed This will be done in the office on his next visit. Coding Level of Care Code New Pt Level 3 (81853) Diagnoses Epidermal cyst L72.0
[2025-04-15 13:37] VITALS: BP 148/95; PULSE 73; BMI 36.0
--- OUTSIDE RECORDS SUMMARY | 2025-04-15 14:48 | XMS_ITS | Patient Health Record ---
Author Organization [facility] Address [address] [place] [address] Care Team Providers Care Chemical Preparer Name Role Phone Juan Manuel JURADO [place] Primary Care Provider Reji Zaragoza Unavailable [phone] Reason For Referral No Information Medications Medication SIG (Take, Route, Frequency, Duration) Notes Start Date End Date Status Omeprazole 20 MG TK 1 T PO ONCE A DAY Oral for 30 Active Metoprolol Succinate ER Active clonazePAM 1 MG (Schedule IV Drug) T K 1 T PO QHS PRN Oral for 30 at least once a day Active Dulcolax (colon prep) 5 MG take at 3:00 p.m and 7:00p.m. Orally two tablets twice a day for one day for 1 day 11/22/2017 Active MiraLax (colon prep) 8.3 ounce ((238) grams mixed with Gatorade or Crystal Light orally begin at 5:00 p.m. the day before the procedure for 1 day 11/22/2017 Active Social History Tobacco Use: Social History Observation Description Date Details (start date - stop date) Former Smoker NA - NA Tobacco Use/Smoking Question Answer Notes Patient is a former smoker How long has it been since you last smoked? > 10 years Alcohol Screen Question Answer Notes Did you have a drink contain ing alcohol in the past year? Yes How often did you have a dri nk containing alcohol in the past year? 2 to 4 times a month (2 points) How many drinks did you have on a typical day when you were drinking in the past year? 5 or 6 drinks (2 points) Points 4 Interpretation Positive Section Notes: Nonsmoker > 10 years ago; oc c. alcohol Problems Problem Type SNOMED Code ICD Code Onset Dates Problem Status W/U Status Risk Notes Problem [id number] Encounter for screening for malignant neoplasm of colon (Z12.11) Active confirmed Problem 378135098 Abdominal bloati ng (R14.0) Active confirmed Problem 728612646 Gastroesophageal reflux disease, esophagitis presence not specified (K21.9) Active confirmed Problem 04558589 Constipation, unspecified constipation type (K59.00) Active confirmed Plan Of Treatment Pending Test Test Name Order Date GI BIOPSY 12/19/2017 Future Test Test Name Order Date UPPER GI ENDOSCOPY 11/22/2017 COLONOSCOPY 11/22/2017 Insurance Providers Payer Name Payer Address Payer Phone Subscriber Number Group Number Insured Name Patient Relationship to Insured Coverage Start Date Coverage End Date MEDICARE OF [place] [address] [place] [address] [phone] [id number] RONY CRAWFORD Self - patient is the insured MEDICAID OF [facility] [address] [place] [address] [id number] RONY CRAWFORD Self - patient is the insured Medical (General) History Medical History History ICD Code DM diet- controlled Hypertension Denies [place],CVA,Lung disease,renal disease GERD--erosive esophagitis on E[place] [address] Russ Sleep apnea--but presently not using the CPAP Anxiety Surgical History Surgery Date(Month/Year) Appendectomy Cholecystectomy
== END 2025-04-15 13:55 | disposition home or self-care (01) ==
LOC: HO.HGS 13:25
PROVIDERS: PCP Internal Medicine; Visit Provider Surgery
DX: L72.0 Epidermal cyst (principal)
CPT/HCPCS: 99203

== ENCOUNTER → 2025-04-15 13:24 | Outpatient (BNVA) | payer MEDICARE, SELFPAY | PROVIDERS: PCP Internal Medicine; Visit Provider Surgery | DX: L72.0 Epidermal cyst (principal) | CPT/HCPCS: 99202 ==

== ENCOUNTER 2025-05-22 08:00 | Outpatient (AMB) | payer MEDICARE, SELFPAY ==
--- OUTSIDE RECORDS SUMMARY | 2025-05-22 08:03 | XMS_ITS | Patient Health Record ---
Author Organization [facility] Address [address] [place] [address] Care Team Providers Care Technical Specialist Cytology Name Role Phone Juan Manuel JURADO [place] Primary Care Provider Reji Zaragoza Unavailable [phone] Reason For Referral No Information Medications Medication [...] Problem Status W/U Status Risk Notes Problem 701133957 Encounter for screening for malignant neoplasm of colon (Z12.11) Active confirmed Problem 910131734 Abdominal bloati ng (R14.0) Active confirmed Problem 990433559 Gastroesophageal reflux disease, esophagitis presence not specified (K21.9) Active confirmed Problem 24106899 Constipation, unspecified constipation type (K59.00) Active confirmed [...] [place] [address] [place] [address] [id number] RONY CRAWFORD Self - patient is the insured MEDICAID OF [facility] [address] [place] [address] [phone] [id number] RONY CRAWFORD Self - patient is the insured Medical (General) History Medical History History ICD Code DM diet- controlled Hypertension Denies [place],CVA,Lung disease,renal disease GERD--erosive esophagitis [place] [address] Russ Sleep apnea--but presently not using the CPAP Anxiety Surgical History Surgery Date(Month/Year) Appendectomy Cholecystectomy
--- NOTE | 2025-05-22 08:48 | MHC.OFFWIV ---
Intake Vital Signs 05/22/25 08:50 Height 5 ft 11 in Weight 259 lb BMI 36.1 BP 166/90 H Blood Pressure Location Lt brachial Position Sitting Pulse 75 Pulse Source Pulse Oximeter Temp 97.9 F Temp Source Oral Pulse Oximetry (%) 98 Oxygen Delivery Method Room Air Intake Visit Reasons: EP Piece of earbud stuck in lt ear Intake Note: presents with lodged rubber ear piece of ear bud in his left ear Patient Tobacco Use Status: Former Tobacco user Allergies duloxetine (Cymbalta) Allergy (Unknown, Verified 05/22/25 08:53) nausea , vomiting gabapentin Allergy (Unknown, Verified 05/22/25 08:53) dizziness, nausea shellfish derived Allergy (Unknown, Verified 05/22/25 08:53) Unknown Do you need a note to return to daycare/school/sports/work: No HPI HPI Comments History of Present Illness Details History - The patient is a 60-year-old male presenting with a retained earbud cover in the left ear. - Earbud cover retained after sleeping with earbuds, removed without pain. - Ear canal irrigated, patient experienced dizziness during the procedure. - Cervical infection noted, ear canal clean post-irrigation. - Advised to use Deprox drops weekly instead of Q-tips. Physical Exam Physical Exam General: Cooperative, healthy appearing, comfortable, no acute distress and well developed Orientation: Patient oriented x3 Limitations: No limitations Head: Normal to inspection Ears: External ears normal bilaterally, TM's with ear bud, also impacted cerumen right side, left TM normal, Face and sinus: Normal facial exam Neck: Notable cervical infection, addressed during examination Respiratory: Normal respiratory effort and able to speak in complete sentences. Skin: No rashes or lesions noted Neuro: Patient oriented x3 Extremities: normal to inspection [facility] Medical History (Updated 05/22/25 @ 09:17 by Eva Zhang PA-C) Epidermal cyst Arthritis of sacroiliac joint Lumbar spondylosis Mixed hyperlipidemia Neuropathy Anxiety Obesity (BMI 30-39.9) Obstructive sleep apnea Elevated LFTs GERD without esophagitis Constipation Dyslipidemia Benign essential hypertension Diabetes mellitus Surgical History History of colonoscopy History of cholecystectomy (~12/19/17) Family History Father No problems noted. Mother Depression Myocardial infarction Brother In good health Brother In good health Daughter In good health Daughter In good health Daughter In good health Social History Housing: House Alcohol intake: current Alcohol intake frequency: holidays/special occasions only Patient Tobacco Use Status: Former Tobacco user e-Cigarette/Vaping Use: Never Used Second Hand Smoke Exposure: Yes service: No Current occupational status: disabled Cognitive needs: No Hearing needs: No Vision needs: No Review of Systems Const All systems reviewed & are unremarkable except as noted in HPI and below Physical Exam Vital Signs: Last Vital Signs Temp 97.9 F 05/22/25 08:50 Pulse 75 05/22/25 08:50 BP 166/90 H 05/22/25 08:50 Pulse Ox 98 05/22/25 08:50 Oxygen Delivery Method Room Air 05/22/25 08:50 BMI result Body Mass Index 36.1 Office Procedures Cerumen Removal Details: Able to remove the foreign body with alligator clip, once it was removed, notable cerumen impaction which we tried to remove with a loop and irrigation but we were unsuccessful, we did remove a fair amount but it was not completely clear when we were done. From which ear canal was the cerumen removed: left Removal: irrigation and cerumen loop/spoon Notes: patient tolerated procedure well and no complications [id number] Irrigation/Lavage Assessment & Plan Assessment & Plan (1) Foreign body in left ear, initial encounter: Code(s): T16.2XXA - Foreign body in left ear, initial encounter Plan: Plan Patient was informed and verbally consented to the use of an ambient scribe for clinic note documentation during this visit. 1. Retained Foreign Body In left ear - Removed earbud cover, irrigated ear canal 2. Impacted cerumen left ear - partially removed with loop and irrigation. Patient will use Debrox drops and return for the remainder to be flushed out (2) Impacted cerumen, left ear: Code(s): H61.22 - Impacted cerumen, left ear Plan: as above Orders: Orders AMB Cerumen Removal Today H61.22 - Impacted cerumen, left ear Coding Level of Care Code Est Pt Level 4 (08501) Diagnoses Foreign body in left ear, initial encounter T16.2XXA Impacted cerumen, left ear H61.22 CPT Codes Office Procedure - CPT: 12672-Nfw Irrigation/Lavage ([id number])
[2025-05-22 08:50] VITALS: BP 166/90; PULSE 75; TEMP 36.6; O2SAT 98; BMI 36.1
== END 2025-05-22 09:25 | disposition home or self-care (01) ==
PROVIDERS: PCP Internal Medicine; Visit Provider Physician Assistant
DX: T16.2XXA Foreign body in left ear, initial encounter (principal); H61.22 Impacted cerumen, left ear

== ENCOUNTER → 2025-05-22 08:00 | Outpatient (BNVA) | payer MEDICARE, SELFPAY | PROVIDERS: PCP Internal Medicine; Visit Provider Physician Assistant | DX: H61.22 Impacted cerumen, left ear (principal); T16.2XXA Foreign body in left ear, initial encounter; X58.XXXA Exposure to other specified factors, initial encounter; Y93.9 Activity, unspecified; Y92.9 Unspecified place or not applicable; Y99.9 Unspecified external cause status | CPT/HCPCS: 69200; 99212 ==

== ENCOUNTER 2025-06-15 07:27 | Outpatient (REF) | payer MEDICARE, SELFPAY ==
[2025-06-15 07:50] LABS: MANUAL DIFF FLAG NO
[2025-06-15 07:59] LABS: Hematocrit 41.6 % (42.0-52.0); Hemoglobin 14.0 g/dl (14.0-18.0); Imm Gran Abs Auto 0.03 X10*3/uL (0.00-0.03); Imm Gran Pct Auto 0.4 % (0.0-0.4); Lymphocytes Absolute Auto 1.9 X10*3/uL (1.2-4.9); Mean Corpuscular HGB Conc 33.7 g/dl (31.0-36.0); Mean Corpuscular Hemoglobin 30.2 pg (27.0-33.0); Mean Corpuscular Volume 89.7 fL (80.0-98.0); NRBC Abs Auto 0.000 X10*3/uL (0.0-0.012); NRBC Pct Auto 0.0 /100WBC (0.0-0.2); Platelet Count 242 X10*3/uL (160-400); Red Blood Count 4.64 X10*6/uL (4.60-5.80); White Blood Count 8.3 X10*3/uL (4.8-10.8)
[2025-06-15 08:22] LABS: Hemoglobin A1C 161.7794 umol/L; Total Hemoglobin (HGBA1C) 3693.0957 umol/L
[2025-06-15 08:43] LABS: Alanine Aminotransferase 63 U/L (0-40); Albumin Level 4.6 g/dL (3.5-5.0); Alkaline Phosphatase 107 U/L (39-117); Anion Gap 15 (12-20); Aspartate Amino Transferase 37 U/L (5-37); Blood Urea Nitrogen 21 mg/dL (9-16); Calcium 9.4 mg/dL (8.4-10.2); Carbon Dioxide 24 mmol/L (22-29); Chloride 107 mmol/L (96-108); Cholesterol 201 mg/dL (<200); Estimated Glomerular Filt Rate > 60; HDL Cholesterol 38 mg/dL (>40); Potassium 3.5 mmol/L (3.3-5.1); Sodium 142 mmol/L (135-145); Total Protein 7.4 g/dL (6.5-8.0); Triglycerides 96 mg/dL (<150)
[2025-06-15 08:58] LABS: Appearance Urine Clear; Glucose Urine UA Negative (Negative); PH 5.5 (5.0-9.0); Specific Gravity - Urine 1.025 (1.005-1.025)
[2025-06-15 11:19] LABS: Microalbum/Creatinine Ratio Ur 15.3 ug/mg cr (<30)
== END 2025-06-15 07:28 | disposition home or self-care (01) ==
LOC: HO.LAB 07:27
PROVIDERS: PCP Internal Medicine; Visit Provider Internal Medicine
DX: R30.0 Dysuria (principal); D64.9 Anemia, unspecified; E11.9 Type 2 diabetes mellitus without complications; E55.9 Vitamin D deficiency, unspecified; E78.00 Pure hypercholesterolemia, unspecified
CPT/HCPCS: 36415; 80053; 80061; 81003; 82043; 82306; 82570; 83036; 85025

== ENCOUNTER 2025-06-18 12:59 | Outpatient (AMB) | payer MEDICARE, SELFPAY ==
[2025-06-18 13:07] VITALS: BP 142/98; PULSE 76; TEMP 36.3; O2SAT 98; BMI 36.3
--- NOTE | 2025-06-18 13:07 | A.OFFPC_ITS ---
Vital Signs 06/18/25 13:07 Height 5 ft 11 in Weight 260 lb BMI 36.3 BP 142/98 H Blood Pressure Location Lt brachial Position Sitting Pulse 76 Pulse Source Pulse Oximeter Temp 97.3 F Temp Source Temporal Artery Scan Pulse Oximetry (%) 98 Oxygen Delivery Method Room Air Intake Visit Reasons: DM, hyperlipidemia, HTN Allergies duloxetine (Cymbalta) Allergy (Unknown, Verified 06/18/25 13:48) nausea , vomiting gabapentin Allergy (Unknown, Verified 06/18/25 13:48) dizziness, nausea shellfish derived Allergy (Unknown, Verified 06/18/25 13:48) Unknown Medication List - Last Reconciled 06/18/25 by Yash Zambrano MD atenolol 25 mg PO DAILY blood sugar diagnostic (Geliyoo Ultra Test strips) DIRECTED TO TEST BLOOD SUGAR DAILY clonazepam 1 mg PO BEDTIME PRN 30 days lancets (Geliyoo Delica Plus Lancet) 30 gauge miscellaneous DAILY losartan 50 mg PO DAILY 90 days omeprazole 20 mg PO BID 90 days Tobacco use date assessed: 06/18/25 Dental Screening Dental Screen Date: 06/18/25 Did you have a dental visit in the last 12 months?: No Did you have a dental problem in the last 6 months where you did not have access to dental care?: No Was dental information given to patient?: Patient declined HPI DM, hyperlipidemia, HTN HPI Details Patient comes in today for his follow up visit - he was last seen by me back in September 2024 States that he feels okay He denies any headaches or dizziness Denies any chest pains, no shortness of breath No nausea/vomiting, no abdominal pain No change in bowel habits noted He had his follow up labs done a few days ago - to discuss his results [facility] Medical History Epidermal cyst Arthritis of sacroiliac joint Lumbar spondylosis Mixed hyperlipidemia Neuropathy Anxiety Obesity (BMI 30-39.9) Obstructive sleep apnea Elevated LFTs GERD without esophagitis Constipation Dyslipidemia Benign essential hypertension Diabetes mellitus Surgical History History of colonoscopy History of cholecystectomy (~12/19/17) Family History Father No problems noted. Mother Depression Myocardial infarction Brother In good health Brother In good health Daughter In good health Daughter In good health Daughter In good health Social History Housing: House Alcohol intake: current Alcohol intake frequency: holidays/special occasions only Patient Tobacco Use Status: Former Tobacco user e-Cigarette/Vaping Use: Never Used Second Hand Smoke Exposure: Yes service: No Current occupational status: disabled Cognitive needs: No Hearing needs: No Vision needs: No Questionnaire PHQ-9 Over the last 2 weeks, how often have you been bothered by any of the following problems? 1. Little interest or pleasure in doing things: not at all 2. Feeling down, depressed, or hopeless: not at all 3. Trouble falling or staying asleep, or sleeping too much: not at all 4. Feeling tired or having little energy: not at all 5. Poor appetite or overeating: not at all 6. Feeling bad about yourself - or that you are a failure or have let yourself or your family down: not at all 7. Trouble concentrating on things, such as reading the newspaper or watching television: not at all 8. Moving or speaking so slowly that other people could have noticed. Or the opposite - being so fidgety or restless that you have been moving around a lot more than usual: not at all 9. Thoughts that you would be better off or of hurting yourself in some way: not at all Total score: 0 Depression Screening Interpretation: Negative Depression Screening Done: Yes 20273 - PHQ-9 Billing: Yes Source: Developed by Drs. Reji Ureña, Antionette Dickey, Ronald Ignacio and colleagues, with an educational shelby from [employer]. Thrive Questionnaire Date Thrive assessed: 06/18/25 I am a: Patient What is your living situation today?: I have a steady place to live Within the past 12 months, did the food you bought not last and you didn't have the money to get more?: I choose not to answer this question Within the past 12 months, did you worry whether your food would run out before you got money to buy more?: I choose not to answer this question Do you have trouble paying for medicines?: No Do you have trouble getting transportation to medical appointments?: No Do you have trouble paying your heating and electricity bill?: No Do you have trouble taking care of your child, family member or friend?: No Do you have trouble with day-to-day activities such as bathing, preparing meals, shopping, managing finances, etc.?: No Are you currently unemployed and looking for a job?: No Are you interested in more education?: No Please select the resources that you would like help with: None Currently or been in a relationship where the following occur: I choose not to answer THRIVE Score: 0 AUDIT C Alcohol Use Questionnaire (AUDIT-C) 1. How often do you have a drink containing alcohol?: 2-3 times a week 2. How many drinks containing alcohol do you have on a typical day when you are drinking?: 3 or 4 3. How often do you have six or more drinks on one occasion?: Weekly Total Score: 7 Score Reviewed/Action Taken: Yes SIRENA-7 AMB Questionnaire SIRENA-7 Date SIRENA - 7 assessed: 06/18/25 Feeling nervous, anxious, or on edge: 0 = Not at all Not being able to stop or control worryin = Not at all Worrying too much about different things: 0 = Not at all Trouble relaxin = Not at all Being so restless that it is hard to sit still: 0 = Not at all Becoming easily annoyed or irritable: 0 = Not at all Feeling afraid as if something awful might happen: 0 = Not at all Total SIRENA-7 score (0-4 normal; 5-9 mild; 10-14 moderate; 15-21 severe): 0 Source: Developed by Drs. Reji Ureña, Antionette Dickey, Ronald Ignacio and colleagues, with an educational shelby from [employer]. SIRENA-7 Assessment Billing SIRENA-7 Assessment Tool: SIRENA-7 Assessment 74333 Review of Systems Const Denies chills, Denies fatigue, Denies fever(s) and Denies headache(s) ENT Denies dysphagia, Denies dizziness, Denies otalgia, Denies headache(s), Denies neck pain, Denies odynophagia and Denies sore throat Card Denies chest pain, Denies palpitations and Denies dyspnea Resp Denies chest congestion, Denies cough and Denies dyspnea GI Denies abdominal pain, Denies constipation, Denies dysphagia, Denies heartburn, Denies diarrhea, Denies nausea, Denies odynophagia and Denies vomiting Denies difficulty urinating, Denies dysuria, Denies nocturia and Denies urinary frequency Musc Reports back pain (on and off) and Denies neck pain Skin/Breast Denies rash Neuro Denies dizziness and Denies headache(s) Psych Reports anxiety (current Rx helping) Endo Denies fatigue and Denies palpitations Physical exam (Primary Care) Vital Signs: Last Vital Signs Temp 97.3 F 06/18/25 13:07 Pulse 76 06/18/25 13:07 BP 142/98 H 06/18/25 13:07 Pulse Ox 98 06/18/25 13:07 Oxygen Delivery Method Room Air 06/18/25 13:07 BMI result Body Mass Index 36.3 Tobacco/Smoking Status: Tobacco use Status Tobacco use date assessed 06/18/25 06/18/25 13:11 Patient Tobacco Use Status Former Tobacco user 06/18/25 13:11 e-Cigarette/Vaping Use Never Used 06/18/25 13:11 PHQ-9: PHQ-9 Score PHQ-9: Total score 0 06/18/25 13:49 Depression Screening Interpretation: Negative Thrive Assessment: Date of Thrive Assessment Date Thrive assessed 06/18/25 06/18/25 13:11 Currently or been in a relationship where the following occur: I choose not to answer Const General: no acute distress and alert HENMT Ears: TM's normal bilaterally and EAC's normal Throat: Yes posterior oropharynx normal and Yes tonsils normal (no TP congestion) Neck Neck: Yes supple and No lymphadenopathy Thyroid: Thyroid normal Resp Auscultation: clear to auscultation bilaterally, no rales and no wheezes Cardio Rate: regular rate Rhythm: regular rhythm Heart sounds: no murmurs GI Palpation (GI): Soft to palpation and nontender Auscultation: normal bowel sounds General: Yes no CVA tenderness Back/Spine/Pelvis Back: no CVA tenderness Thoracic/Lumbar Spine: lumbar spinal tenderness (mild) Skin Rashes: no rashes Extrem General: Yes no clubbing, cyanosis or edema Right lower extremity: knee Details: tenderness (mild) Results Reviewed Results Reviewed: Laboratory Tests 06/15/25 06/15/25 07:44 07:49 WBC 8.3 Hgb 14.0 Hct 41.6 L Plt Count 242 Sodium 142 Potassium 3.5 Creatinine 0.74 Estimated GFR > 60 Fasting Glucose 147 H Hemoglobin A1c % 6.2 H Calcium 9.4 AST 37 ALT 63 H Triglycerides 96 Cholesterol 201 H LDL Cholesterol, Calc 144 H HDL Cholesterol 38 L 25-OH Vitamin D Total 46.2 Ur Specific [place] 1.025 Urine Protein Negative Urine Glucose (UA) Negative Urine Blood Negative Urine Nitrite Negative Ur Leukocyte Esterase Negative Microalb/Creat Ratio 15.3 Coding Level of Care Code Est Pt Level 4 (95764) Complex EM visit Add On G2211 Diagnoses Mixed hyperlipidemia E78.2 Type 2 diabetes mellitus without complication, without long-term current use of insulin E11.9 Diabetes mellitus complication status: without complication Diabetes mellitus shelter insulin use: without shelter use Diabetes mellitus type: type 2 Benign essential hypertension I10 GERD without esophagitis K21.9 Neuropathy G62.9 Patellar tendinitis of right knee M76.51 Lumbar spondylosis M47.816 Arthritis of sacroiliac joint M46.1 Constipation, unspecified constipation type K59.00 Constipation type: unspecified constipation type Elevated LFTs R79.89 Obstructive sleep apnea G47.33 Anxiety F41.9 Obesity (BMI 30-39.9) E66.9 Additional Codes SIRENA-7 Assessment Billing - SIRENA-7 Assessment Tool: SIRENA-7 Assessment 31306 ([id number]) PHQ-9 - 65507 - PHQ-9 Billing: Yes ([id number]) Assessment & Plan Assessment & Plan (1) Mixed hyperlipidemia: Code(s): E78.2 - Mixed hyperlipidemia Category: Medical Plan: Results of his labs done a few days ago reviewed and discussed with patient - he is cautioned that his cholesterol levels have increased slightly from last year's numbers Reinforced low cholesterol diet Patient was on Rosuvastatin 5 mg QD previously but he admits that he stopped taking it a while ago as he felt that the medication was making him feel bloated and gain weight States that he has been on a Mediterranean diet and has been eating a lot of eggplants lately and is hoping that he can get his cholesterol numbers lower with diet modification alone Will recheck his labs and fasting lipids in 4 months for follow up (2) Diabetes mellitus: Code(s): E11.9 - Type 2 diabetes mellitus without complications Category: Medical Qualifiers: Diabetes mellitus complication status: without complication Diabetes mellitus intermediate card tender insulin use: without intermediate card tender use Diabetes mellitus type: type 2 Qualified Code(s): E11.9 - Type 2 diabetes mellitus without complications Plan: His HgbA1c was at 6.2% on his labs done a few days ago (he was previously at 6.7% back in August 2024) - goal is at least <7.0% but ideally <6.5% Reinforced diabetic diet He would like to continue with diet modification and exercise alone without any Rx He is reminded that he needs to be able to keep his HgbA1c lower than 6.0 to 6.2% if he wishes to continue staying off Rx for his diabetes He was on Jardiance 25 mg Q AM previously but he stopped taking this a while back as his insurance would not cover the Rx He was also supposed to be on Metformin ER 500 mg QD but he admitted to stopping the medication as he often gets an upset stomach whenever he takes his Metformin Will recheck his HgbA1c and FBS in 4 months for follow-up (3) Benign essential hypertension: Code(s): I10 - Essential (primary) hypertension Category: Medical Plan: Reinforced low sodium diet - goal is systolic BP of 120 mm or less Continue Atenolol 25 mg QD and Losartan 50 mg QD He is reminded to continue monitoring his blood pressure regularly (4) GERD without esophagitis: Code(s): K21.9 - Gastro-esophageal reflux disease without esophagitis Category: Medical Plan: Dietary restrictions reinforced Continue Omeprazole 20 mg BID (5) Neuropathy: Code(s): G62.9 - Polyneuropathy, unspecified Category: Medical Plan: His previous legs symptoms appear to have improved lately He was started on Nortriptyline at bedtime previously to help with his symptoms but states that he has not taken this in a while now and has been doing okay without his medication If his symptoms progress or get worse, will consider sending him for EMG & NCV for further evaluation (6) Patellar tendinitis of right knee: Code(s): M76.51 - Patellar tendinitis, right knee Category: Medical Plan: Right knee x-rays done last year revealed (+) superior patellar insertion enthesopathy Patient states that his right knee pain has been mostly manageable and has not been bothering him lately (7) Lumbar spondylosis: Code(s): M47.816 - Spondylosis without myelopathy or radiculopathy, lumbar region Category: Medical Plan: Reinforced activity and weight-lifting restrictions X-rays of the lumbar spine done in November 2022 revealed (+) mild lumbar spondylosis with mild bilateral SI joint arthritis Will consider referring him to physical therapy if his back pain flares up or progresses (8) Arthritis of sacroiliac joint: Code(s): M46.1 - Sacroiliitis, not elsewhere classified Category: Medical Plan: X-rays of the lumbar spine done in November 2022 revealed (+) mild lumbar spondylosis along with mild bilateral SI joint arthritis Will consider referral to pain management if his low back pain increases (9) Constipation: Code(s): K59.00 - Constipation, unspecified Category: Medical Qualifiers: Constipation type: unspecified constipation type Qualified Code(s): K59.00 - Constipation, unspecified Plan: Improved - he is again encouraged to continue with increased oral fluids and dietary fiber intake He used to take Amitiza 8 mcg BID and Miralax 17 gm QD in the past but states that he currently is only taking some OTC stool softeners daily Notes that his current diet has also helped a lot with regulating his bowel movements better (10) Elevated LFTs: Code(s): R79.89 - Other specified abnormal findings of blood chemistry Category: Medical Plan: Improving - this was again most likely related to his weight and cholesterol levels Will continue to monitor his LFTs regularly (11) Obstructive sleep apnea: Code(s): G47.33 - Obstructive sleep apnea (adult) (pediatric) Category: Medical Plan: States that he is no longer using his CPAP device when sleeping at night as his unit is very old and he has not seen Sleep Medicine in a while now Have offered to refer him back but he would like to hold off and continue to try losing weight for now to see if losing weight will be enough to help address his sleep apnea issues (12) Anxiety: Code(s): F41.9 - Anxiety disorder, unspecified Category: Medical Plan: Continue Clonazepam 1 mg Q HS PRN (13) Obesity (BMI 30-39.9): Code(s): E66.9 - Obesity, unspecified Category: Medical Plan: Reinforced diet/exercise as tolerated/lose weight Plan Follow up in 4 months Orders: Orders Hemoglobin A1c 4 Months E11.9 - Type 2 diabetes mellitus without complications Complete Blood Count Auto Diff 4 Months D64.9 - Anemia, unspecified Lipid Panel 4 Months E78.00 - Pure hypercholesterolemia, unspecified Microalbumin, Random (w Creat) 4 Months E11.9 - Type 2 diabetes mellitus without complications TSH reflex Free T4 4 Months E78.00 - Pure hypercholesterolemia, unspecified UA CC w/rflx Micro + Cult 4 Months R30.0 - Dysuria Vitamin B12 and Folate 4 Months E53.8 - Deficiency of other specified B group vitamins Comprehensive [place]. Panel Fast 4 Months E78.00 - Pure hypercholesterolemia, unspecified Vitamin D 25-OH Total 4 Months E55.9 - Vitamin D deficiency, unspecified
--- OUTSIDE RECORDS SUMMARY | 2025-06-18 13:45 | XMS_ITS | Patient Health Record ---
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 Name Role Phone Juan Manuel JURADO [place] Primary Care Provider Reji Zaragoza Unavailable [phone] Reason For Referral No Information Medications Medication [...] Problem Status W/U Status Risk Notes Problem [id number] Encounter for screening for malignant neoplasm of colon (Z12.11) Active confirmed Problem [id number] Abdominal bloati ng (R14.0) Active confirmed Problem 401007040 Gastroesophageal reflux disease, esophagitis presence not specified (K21.9) Active confirmed Problem 24906368 Constipation, unspecified constipation type (K59.00) Active confirmed [...] [address] [place] [address] [id number] RONY CRAWFORD Self - patient is the insured MEDICAID OF [facility] [address] [place] [address] [id number] RONY CRAWFORD Self - patient is the insured Medical (General) History Medical History History ICD Code DM diet- controlled Hypertension Denies [place],CVA,Lung disease,renal disease GERD--erosive esophagitis [place] [address] Russ Sleep apnea--but presently not using the CPAP Anxiety Surgical History Surgery Date(Month/Year) Appendectomy Cholecystectomy
== END 2025-06-18 14:00 | disposition home or self-care (01) ==
LOC: HO.HMCH 13:00
PROVIDERS: PCP Internal Medicine; Visit Provider Internal Medicine
DX: E78.2 Mixed hyperlipidemia (principal); E11.42 Type 2 diabetes mellitus with diabetic polyneuropathy; I10 Essential (primary) hypertension; K21.9 Gastro-esophageal reflux disease without esophagitis; G62.9 Polyneuropathy, unspecified; M76.51 Patellar tendinitis, right knee; M47.816 Spondylosis without myelopathy or radiculopathy, lumbar region; M46.1 Sacroiliitis, not elsewhere classified; K59.00 Constipation, unspecified; R79.89 Other specified abnormal findings of blood chemistry; G47.33 Obstructive sleep apnea (adult) (pediatric); F41.9 Anxiety disorder, unspecified

== ENCOUNTER → 2025-06-18 12:59 | Outpatient (BNVA) | payer MEDICARE, SELFPAY | PROVIDERS: PCP Internal Medicine; Visit Provider Internal Medicine | DX: E11.9 Type 2 diabetes mellitus without complications (principal); E78.5 Hyperlipidemia, unspecified; I10 Essential (primary) hypertension; E78.2 Mixed hyperlipidemia; K21.9 Gastro-esophageal reflux disease without esophagitis; G62.9 Polyneuropathy, unspecified; M76.51 Patellar tendinitis, right knee; M47.816 Spondylosis without myelopathy or radiculopathy, lumbar region; M46.1 Sacroiliitis, not elsewhere classified; K59.00 Constipation, unspecified; R79.89 Other specified abnormal findings of blood chemistry; G47.33 Obstructive sleep apnea (adult) (pediatric); F41.9 Anxiety disorder, unspecified; E66.9 Obesity, unspecified; Z68.36 Body mass index [BMI] 36.0-36.9, adult | CPT/HCPCS: 96127; 99212 ==

== ENCOUNTER 2025-07-04 08:47 | Outpatient (AMB) | payer MEDICARE, SELFPAY ==
[2025-07-04 08:49] VITALS: BP 162/108; PULSE 74; TEMP 36.8; O2SAT 97; BMI 36.4
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
[2025-07-04 08:53] VITALS: BP 164/98
--- OUTSIDE RECORDS SUMMARY | 2025-07-04 09:50 | XMS_ITS | Patient Health Record ---
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 Name Role Phone Juan Manuel JURADO [place] Primary Care Provider Reji Zaragoza Unavailable [phone] Reason For Referral No Information Medications Medication [...] Problem Status W/U Status Risk Notes Problem [id number] Encounter for screening for malignant neoplasm of colon (Z12.11) Active confirmed Problem 871695466 Abdominal bloati ng (R14.0) Active confirmed Problem 705086092 Gastroesophageal reflux disease, esophagitis presence not specified (K21.9) Active confirmed Problem 28604367 Constipation, unspecified constipation type (K59.00) Active confirmed [...] [place] [address] [place] [address] [id number] RONY CRAWFORD Self - patient is the insured MEDICAID OF [facility] [address] [place] [address] [id number] RONY CRAWFORD Self - patient is the insured Medical (General) History Medical History History ICD Code DM diet- controlled Hypertension Denies [place],CVA,Lung disease,renal disease GERD--erosive esophagitis [place] [address] Russ Sleep apnea--but presently not using the CPAP Anxiety Surgical History Surgery Date(Month/Year) Appendectomy Cholecystectomy
== END 2025-07-04 09:20 | disposition home or self-care (01) ==
PROVIDERS: PCP Internal Medicine; Visit Provider Nurse Practitioner Family
DX: M54.2 Cervicalgia (principal)

== ENCOUNTER 2025-07-04 08:47 | Outpatient (REF) | payer MEDICARE, SELFPAY ==
--- NOTE | ~2025-07-04 | XR_ITS ---
EXAMINATION: XR CERVICAL SPINE CLINICAL INFORMATION: M54.2 - Cervicalgia COMPARISON: Prior x-ray dated January 09, 2007 is not available on PACS TECHNIQUE: AP and lateral views, atlantoodontoid views. FINDINGS: Craniocervical junction is intact. Small marginal osteophyte formation, both anteriorly and posteriorly and decreased intervertebral disc height C5-6 and to a lesser extent C4-5. No acute cortical disruption. Grade 1 retrolisthesis C4-5. No lytic or blastic lesions.. Upper airway is patent. XR/XR cervical spine 3V IMPRESSION: Cervical spondylosis C5-6 and to a lesser extent C4-5. Grade 1 retrolisthesis C4-5. Electronically signed by: Matt Berry MD 07/04/2025 09:39 AM EDT
== END 2025-07-04 08:48 | disposition home or self-care (01) ==
LOC: HO.HMGCX 08:47
PROVIDERS: PCP Internal Medicine; Visit Provider Nurse Practitioner Family
DX: M54.2 Cervicalgia (principal)
CPT/HCPCS: 72040; 99212

== ENCOUNTER → 2025-07-04 09:19 | Outpatient (BNV) | payer MEDICARE, SELFPAY | PROVIDERS: PCP Internal Medicine; Visit Provider Radiology Diagnostic Radiology | DX: M47.812 Spondylosis without myelopathy or radiculopathy, cervical region (principal) | CPT/HCPCS: 72040 ==